=== PATIENT | male | born 1955 | race Hispanic/Latino ===

== ENCOUNTER 2017-10-28 14:03 | Emergency (ER) | payer BC ==
[2017-10-28 14:14] VITALS: BP 154/91; PULSE 93; RESP 18; TEMP 97; O2SAT 99
--- NOTE | 2017-10-28 16:00 | ED PDOC ---
HPI: Dental Pain/Injury Time Seen by Provider: 10/28/17 15:08 Chief Complaint (Nursing): Dental Pain Chief Complaint (Provider): Dental Pain History Per: Patient History/Exam Limitations: no limitations Onset/Duration Of Symptoms: Days (x1 week) Current Symptoms Are (Timing): Still Present Additional Complaint(s): Josh Marquez is a 62 year old male with a past medical history of hypertension and BPH, who presents to the ED complaining of a wound to his right upper gumline x1 week. He notes it initially felt like a canker sore which he thought would resolve on its own. However, he notes that this past Saturday (10/26/17), he began experiencing right sided facial swelling and persistence of the sore. He notes his pain is in the same location where he had a root canal performed 5 years ago. He notes 2 years ago, the cap came off the affected tooth, and he never had it replaced. Denies fever or taking any medication for symptoms. PMD: [facility] Past Medical History Reviewed: Historical Data, Nursing Documentation, Vital Signs Vital Signs: Last Vital Signs Temp 97 F L 10/28/17 14:12 Pulse 93 H 10/28/17 14:12 Resp 18 10/28/17 14:12 BP 154/91 H 10/28/17 14:12 Pulse Ox 99 10/28/17 14:12 - Medical History PMH: Benign Prostatic Hyperplasia, HTN - Surgical History Surgical History: Appendectomy - Family History Family History: States: Unknown Family Hx - Home Medications Home Medications: Ambulatory Orders Medication Instructions Recorded Enalapril Maleate [Enalapril] 10 mg PO DAILY 07/14/15 Enalapril Maleate [Enalapril] 20 mg PO DAILY #30 tab 07/14/15 Naproxen [Naprosyn] 500 mg PO Q12H #20 tab 07/14/15 Acetaminophen [Tylenol 325mg tab] 975 mg PO TID #20 tab 10/28/17 Clindamycin [Cleocin] 300 mg PO TID 7 Days #21 cap 10/28/17 - Allergies Allergies/Adverse Reactions: Allergies Allergy/AdvReac Type Severity Reaction Status Date / Time moxifloxacin [From Avelox] Allergy RASH Verified 10/28/17 14:11 Review of Systems ROS Statement: Except As Marked, All Systems Reviewed And Found Negative Constitutional: Negative for: Fever ENT: Positive for: Mouth Pain (sore right upper gumline), Other (right sided facial swelling) Physical Exam - Reviewed Nursing Documentation Reviewed: Yes Vital Signs Reviewed: Yes - Physical Exam Appears: Positive for: Well, Non-toxic, No Acute Distress Head Exam: Positive for: ATRAUMATIC Skin: Positive for: Normal Color. Negative for: Rash Eye Exam: Positive for: Normal appearance ENT: Positive for: Other (Mild right sided facial swelling, (-)appreciable abscess, (-)induration, (-)fluctuance, (-)overlying erythema, (-)streaking. ). Negative for: Normal ENT Inspection (Shallow ulcer right upper gumline around first premolar with mild surrounding edema and erythema. No fluctuance noted. Cap of 2nd right molar missing.) Neurologic/Psych: Positive for: Alert, Oriented (x3) - ECG O2 Sat by Pulse Oximetry: 99 (RA) Pulse Ox Interpretation: Normal Medical Decision Making Medical Decision Making: Time: 15:53 Initial Impression: Canker sore, dental infection, facial swelling Plan: --Cleocin 300 mg PO --Tylenol 650 mg PO --Reevaluation Time: 16:03 --Upon provider evaluation patient is medically stable, and requires no further treatment in the ED at this time. Patient will be discharged home with Rx for Cleocin and Tylenol. Counseling was provided and all questions were answered regarding diagnosis and need for follow up with Dentist. There is agreement to discharge plan. Return if symptoms persist or worsen. Scribe Attestation: Documented by Pito Ann, acting as a scribe for Pamela Green PA-C Provider Scribe Attestation: All medical record entries made by the Scribe were at my direction and personally dictated by me. I have reviewed the chart and agree that the record accurately reflects my personal performance of the history, physical exam, medical decision making, and the department course for this patient. I have also personally directed, reviewed, and agree with the discharge instructions and disposition. Disposition - Clinical Impression Clinical Impression: Canker sores oral, Dental infection, Facial swelling - Patient ED Disposition Is Patient to be Admitted: No Counseled Patient/Family Regarding: Diagnosis, Need For Followup, Rx Given - Disposition Referrals: [facility] [Outside] Disposition: Routine/Home Disposition Time: 16:03 Condition: STABLE Additional Instructions: Salt water gargles, take medication as prescribed, and f/u with dentist. Return for any worsening or change in symptoms. Prescriptions: Acetaminophen [Tylenol 325mg tab] 975 mg PO TID #20 tab Clindamycin [Cleocin] 300 mg PO TID 7 Days #21 cap Instructions: Canker Sores (ED), Gingivostomatitis (ED) Forms: [facility] (Czech) Print Language: CAMBODIAN
== END 2017-10-28 16:40 | disposition home or self-care (01) ==
LOC: H.ER 14:03
DX: K12.0 Recurrent oral aphthae (principal); I10 Essential (primary) hypertension; K04.7 Periapical abscess without sinus; N40.0 Benign prostatic hyperplasia without lower urinary tract symptoms

== ENCOUNTER 2018-06-30 06:14 | Emergency (ER) | payer BC, MEDICAID ==
[2018-06-30 06:38] VITALS: RESP 16
--- NOTE | 2018-06-30 08:00 | ED PDOC ---
HPI: Back Time Seen by Provider: 06/30/18 07:07 Chief Complaint (Nursing): Back Pain Chief Complaint (Provider): Back Pain History Per: Patient History/Exam Limitations: no limitations Onset/Duration Of Symptoms: Days (x3) Current Symptoms Are (Timing): Still Present Additional Complaint(s): Josh Marquez is a 63 year old male, with a past medical history HTN, BPH and COPD, who presents to the emergency department complaining of a back pain, hip pain and right thigh pain s/p fall onset for x3 days. Patient reports he rolled out of bed and hit the end table. Patient states hip pain is exacerbated when he stands up. He took x2 Aleve for the pain and is also requesting Rx for Enalapril because he is about to run out. He denies any hematuria, head or injuries to other extremities. No further medical complaints. PMD: None Past Medical History Reviewed: Historical Data, Nursing Documentation, Vital Signs Vital Signs: Last Vital Signs Temp 97.7 F 06/30/18 06:34 Pulse 63 06/30/18 06:34 Resp 16 06/30/18 06:34 BP 175/99 H 06/30/18 06:34 Pulse Ox 97 06/30/18 06:34 - Medical History PMH: Benign Prostatic Hyperplasia, COPD, HTN - Surgical History Surgical History: Appendectomy, Hernia Repair - Family History Family History: States: Unknown Family Hx - Social History Alcohol: None Drugs: Denies - Home Medications Home Medications: Ambulatory Orders Medication Instructions Recorded Enalapril Maleate [Enalapril] 10 mg PO DAILY 07/14/15 Enalapril Maleate [Enalapril] 20 mg PO DAILY #30 tab 07/14/15 Acetaminophen [Tylenol 325mg tab] 975 mg PO TID #20 tab 10/28/17 Clindamycin [Cleocin] 300 mg PO TID 7 Days #21 cap 10/28/17 Enalapril Maleate [Vasotec] 20 mg PO DAILY #30 tab 06/30/18 Naproxen [Naprosyn] 500 mg PO Q12H #20 tab 06/30/18 - Allergies Allergies/Adverse Reactions: Allergies Allergy/AdvReac Type Severity Reaction Status Date / Time moxifloxacin [From Avelox] Allergy RASH Verified 10/28/17 14:11 Review of Systems ROS Statement: Except As Marked, All Systems Reviewed And Found Negative Constitutional: Negative for: Other (head injuries) Genitourinary Male: Negative for: Hematuria Musculoskeletal: Positive for: Back Pain, Leg Pain (right thigh), Other (hip pain) Physical Exam - Reviewed Nursing Documentation Reviewed: Yes Vital Signs Reviewed: Yes - Physical Exam Appears: Positive for: No Acute Distress Head Exam: Positive for: ATRAUMATIC, NORMAL INSPECTION, NORMOCEPHALIC Skin: Positive for: Normal Color, Warm, Dry Eye Exam: Positive for: Normal appearance, EOMI, PERRL Neck: Positive for: Painless ROM Cardiovascular/Chest: Positive for: Regular Rate, Rhythm. Negative for: Murmur Respiratory: Positive for: Normal Breath Sounds. Negative for: Respiratory Distress Gastrointestinal/Abdominal: Positive for: Normal Exam, Soft. Negative for: Tenderness Back: Positive for: Other (Ecchymosis to right lower back w/ some tenderness to area. ). Negative for: Vertebral Tenderness (No midline spine tenderness) Extremity: Positive for: Normal ROM (upper and lower extremities). Negative for : Tenderness (hip and extremities), Deformity, Swelling Neurologic/Psych: Positive for: Alert, Oriented. Negative for: Motor/Sensory Deficits - ECG O2 Sat by Pulse Oximetry: 97 (RA) Pulse Ox Interpretation: Normal - Progress Re-evaluation Time: 11:00 Condition: Re-examined, Improved Medical Decision Making Medical Decision Making: Time: 07:07 Initial Impression: back pain and hip pain s/p trauma/fall. Hip differential includes r/o hi fracture and pelvis fracture. Lower back differential includes r /p intraabdominal injury such as bleeding Initial Plan: --Abdomen & Pelvis w/o PO or IV cont [CT] --Urine dipstick --Flexeril 10 mg PO --Toradol 30 mg IM --Hip 1 view w/ Pelvis RT [RAD] --Reevaluation 09:00 Hip x-ray FINDINGS: BONES: Bone alignment and mineralization are normal. There is no acute displaced fracture or bone destruction. JOINTS: Mild degenerative osteoarthrosis in the hip joints and sacroiliac joints. SOFT TISSUES: Normal. OTHER FINDINGS: None. IMPRESSION: No acute fracture or dislocation. 09:35 Abdomen/Pelvis CT FINDINGS: LOWER THORAX: There is subsegmental atelectasis in the right lung base. The visualized left lung is clear. LIVER: Normal in size. No intrahepatic ductal dilatation. GALLBLADDER AND BILE DUCTS: There are multiple gallstones. No biliary dilatation PANCREAS: Normal in size. No ductal dilatation. SPLEEN: Normal in size. ADRENALS: Normal in size. No discrete nodule. KIDNEYS AND URETERS: The right kidney is normal in size and there is mild right hydronephrosis. No nephrolithiasis. There is mild enlargement of the left kidney. There is a 7 mm nonobstructing stone in the lower pole of the left kidney. There is moderate left hydronephrosis, and moderate diffuse dilatation of the left ureter without evidence for obstructing stone. VASCULATURE: No aortic aneurysm. BOWEL: The small bowel loops are normal in caliber. The colon is normal in size. There is moderate amount of stool in the colon. There is scattered left colonic diverticulosis without CT evidence for acute diverticulitis. No bowel dilatation or wall thickening. No bowel obstruction. APPENDIX: Not visualized. No inflammatory changes in the right lower quadrant. PERITONEUM: No free fluid. No free air. LYMPH NODES: No enlarged lymph nodes. BLADDER: Well distended. REPRODUCTIVE: Mild enlargement of the prostate gland. BONES: No acute fracture. Mild levoscoliosis in the lumbar spine with multilevel degenerative changes. OTHER FINDINGS: There is partial herniation of right lateral bladder into right inguinal hernia. IMPRESSION: No acute findings. 7 mm nonobstructing stone in the lower pole of the left kidney. Moderate left hydronephrosis and moderate diffuse dilatation of the left ureteral without evidence for obstructing stone. Moderate right hip inguinal hernia containing partially herniated right lateral urinary bladder. ----- Scribe Attestation: Documented by Sid Calderon, acting as a scribe for Og Marcelino MD. Provider Scribe Attestation: All medical record entries made by the Scribe were at my direction and personally dictated by me. I have reviewed the chart and agree that the record accurately reflects my personal performance of the history, physical exam, medical decision making, and the department course for this patient. I have also personally directed, reviewed, and agree with the discharge instructions and disposition. Disposition - Clinical Impression Clinical Impression: Back pain, Renal stones, Inguinal hernia - Patient ED Disposition Is Patient to be Admitted: No Counseled Patient/Family Regarding: Studies Performed, Diagnosis, Need For Followup - Disposition Referrals: [facility] [Outside] Disposition Time: 11:00 Condition: GOOD Additional Instructions: Take your medications as instructed. Follow up with your PCP in 2-3 days. Prescriptions: Enalapril Maleate [Vasotec] 20 mg PO DAILY #30 tab Naproxen [Naprosyn] 500 mg PO Q12H #20 tab Instructions: Kidney Stones in Adults, Low Back Pain (DC), Groin Hernia (DC)
--- NOTE | 2018-06-30 09:01 | RAD ---
PROCEDURE: Right Hip Radiographs. HISTORY: right hip pain COMPARISON: None. FINDINGS: BONES: Bone alignment and mineralization are normal. There is no acute displaced fracture or bone destruction. JOINTS: Mild degenerative osteoarthrosis in the hip joints and sacroiliac joints. SOFT TISSUES: Normal. OTHER FINDINGS: None. IMPRESSION: No acute fracture or dislocation.
--- NOTE | 2018-06-30 09:36 | CT ---
Date of service: 06/30/2018 PROCEDURE: CT Abdomen and Pelvis without intravenous contrast HISTORY: right flank lower back pain s/p fall COMPARISON: None. TECHNIQUE: CT scan of the abdomen and pelvis was performed without administration of intravenous contrast. Oral contrast was not administered. Coronal and sagittal reformatted images were obtained. . Radiation dose: Total exam DLP = 570.27 mGy-cm. This CT exam was performed using one or more of the following dose reduction techniques: Automated exposure control, adjustment of the mA and/or kV according to patient size, and/or use of iterative reconstruction technique. FINDINGS: LOWER THORAX: There is subsegmental atelectasis in the right lung base. The visualized left lung is clear. LIVER: Normal in size. No intrahepatic ductal dilatation. GALLBLADDER AND BILE DUCTS: There are multiple gallstones. No biliary dilatation PANCREAS: Normal in size. No ductal dilatation. SPLEEN: Normal in size. ADRENALS: Normal in size. No discrete nodule. KIDNEYS AND URETERS: The right kidney is normal in size and there is mild right hydronephrosis. No nephrolithiasis. There is mild enlargement of the left kidney. There is a 7 mm nonobstructing stone in the lower pole of the left kidney. There is moderate left hydronephrosis, and moderate diffuse dilatation of the left ureter without evidence for obstructing stone. VASCULATURE: No aortic aneurysm. BOWEL: The small bowel loops are normal in caliber. The colon is normal in size. There is moderate amount of stool in the colon. There is scattered left colonic diverticulosis without CT evidence for acute diverticulitis. No bowel dilatation or wall thickening. No bowel obstruction. APPENDIX: Not visualized. No inflammatory changes in the right lower quadrant. PERITONEUM: No free fluid. No free air. LYMPH NODES: No enlarged lymph nodes. BLADDER: Well distended. REPRODUCTIVE: Mild enlargement of the prostate gland. BONES: No acute fracture. Mild levoscoliosis in the lumbar spine with multilevel degenerative changes. OTHER FINDINGS: There is partial herniation of right lateral bladder into right inguinal hernia. IMPRESSION: No acute findings. 7 mm nonobstructing stone in the lower pole of the left kidney. Moderate left hydronephrosis and moderate diffuse dilatation of the left ureteral without evidence for obstructing stone. Moderate right hip inguinal hernia containing partially herniated right lateral urinary bladder.
[2018-06-30 13:14] VITALS: BP 118/70; PULSE 74; TEMP 98
[2018-07-01 16:04] VITALS: O2SAT 97
== END 2018-06-30 13:59 | disposition home or self-care (01) ==
LOC: H.ER 06:14
DX: K40.90 Unilateral inguinal hernia, without obstruction or gangrene, not specified as recurrent (principal); N20.0 Calculus of kidney; M54.9 Dorsalgia, unspecified; M25.551 Pain in right hip; W06.XXXA Fall from bed, initial encounter; Y92.003 Bedroom of unspecified non-institutional (private) residence as the place of occurrence of the external cause; I10 Essential (primary) hypertension; J44.9 Chronic obstructive pulmonary disease, unspecified; N40.0 Benign prostatic hyperplasia without lower urinary tract symptoms
CPT/HCPCS: 73501; 74176; 96372; 99283; J1885

== ENCOUNTER 2018-08-29 22:09 | Emergency (ER) | payer MEDICAID, OTHER ==
[2018-08-29 22:35] VITALS: RESP 18
[2018-08-30 01:33] LABS: BASO # 0.1 K/uL (0.0-0.2); BASO % 0.6 % (0.0-2.0); EOS % 0.3 % (0.0-4.0); HEMOGLOBIN 15.6 g/dL (12.0-18.0); LYMPH # 1.3 K/uL (1.0-4.3); LYMPH % 9.6 % (20.0-40.0); MEAN CELL VOLUME 90.1 fl (80.0-94.0); MEAN CORPUSCULAR HEMOGLOBIN 29.9 pg (27.0-31.0); MEAN CORPUSCULAR HGB CONC 33.1 g/dL (33.0-37.0); MEAN PLATELET VOLUME 10.9 fl (7.2-11.7); MONO # 1.3 K/uL (0.0-0.8); MONO % 9.9 % (0.0-10.0); NEUT # 10.9 K/uL (1.8-7.0); NEUT % 79.6 % (50.0-75.0); PLATELET COUNT 180 K/uL (130-400); RBC 5.21 Mil/uL (4.40-5.90); RED CELL DISTRIBUTION WIDTH 13.8 % (11.5-14.5); WHITE BLOOD COUNT 13.7 K/uL (4.8-10.8)
[2018-08-30 01:42] LABS: ALB/GLOB RATIO 1.2 (1.0-2.1); ALBUMIN 3.8 g/dL (3.5-5.0); CALCIUM 8.6 mg/dL (8.4-10.2)
--- NOTE | 2018-08-30 03:17 | ED PDOC ---
HPI: Back Time Seen by Provider: 08/29/18 23:17 Chief Complaint (Nursing): Abdominal Pain Chief Complaint (Provider): Abdominal Pain History Per: Patient History/Exam Limitations: no limitations Onset/Duration Of Symptoms: Days (yesterday) Current Symptoms Are (Timing): Better Quality Of Discomfort: "Pain" Severity: Severe Additional Complaint(s): 63 year old male with a history of bronchitis and htn presents to the ED with lower left back pain onset yesterday. Patient reports pain was so severe today that he had to stop driving while on the road. He reported one episode of vomiting this morning. Patient further complain about constipation with no bowel movements for 4 days. His abdomen is distended but he has no fever. PMD: none Past Medical History Reviewed: Historical Data, Nursing Documentation, Vital Signs Vital Signs: Last Vital Signs Temp 98.3 F 08/29/18 22:32 Pulse 79 08/29/18 22:32 Resp 18 08/29/18 22:32 BP 186/117 H 08/29/18 22:32 Pulse Ox 99 08/29/18 22:32 - Medical History PMH: Benign Prostatic Hyperplasia, Bronchitis, COPD, HTN - Surgical History Surgical History: Appendectomy, Hernia Repair - Family History Family History: States: Unknown Family Hx - Home Medications Home Medications: Ambulatory Orders Medication Instructions Recorded Enalapril Maleate [Enalapril] 10 mg PO DAILY 07/14/15 Enalapril Maleate [Enalapril] 20 mg PO DAILY #30 tab 07/14/15 Acetaminophen [Tylenol 325mg tab] 975 mg PO TID #20 tab 10/28/17 RX: Clindamycin [Cleocin] 300 mg PO TID 7 Days #21 cap 10/28/17 Naproxen [Naprosyn] 500 mg PO Q12H #20 tab 06/30/18 RX: Enalapril Maleate [Vasotec] 20 mg PO DAILY #30 tab 06/30/18 Sulfamethoxazole/Trimethoprim 1 tab PO BID #14 tab 08/30/18 [Bactrim DS 800 mg-160 mg] Tamsulosin [Flomax] 0.4 mg PO DAILY #10 cap 08/30/18 - Allergies Allergies/Adverse Reactions: Allergies Allergy/AdvReac Type Severity Reaction Status Date / Time moxifloxacin [From Avelox] Allergy RASH Verified 08/29/18 22:32 Review of Systems ROS Statement: Except As Marked, All Systems Reviewed And Found Negative Gastrointestinal: Positive for: Vomiting, Constipation Musculoskeletal: Positive for: Back Pain (lower left) Physical Exam - Reviewed Nursing Documentation Reviewed: Yes Vital Signs Reviewed: Yes - Physical Exam Appears: Positive for: Non-toxic, No Acute Distress (comfortable) Head Exam: Positive for: ATRAUMATIC, NORMOCEPHALIC Skin: Positive for: Normal Color, Warm, Dry Eye Exam: Positive for: Normal appearance Neck: Positive for: Normal Cardiovascular/Chest: Positive for: Regular Rate, Rhythm. Negative for: Murmur Respiratory: Positive for: Normal Breath Sounds. Negative for: Respiratory Distress Gastrointestinal/Abdominal: Positive for: Normal Exam, Soft. Negative for: Tenderness Back: Positive for: Other (no severe tenderness) Extremity: Positive for: Normal ROM. Negative for: Pedal Edema, Deformity Neurologic/Psych: Positive for: Alert, Oriented (x3) - Laboratory Results Result Diagrams: 08/30/18 01:30 08/30/18 01:30 - ECG O2 Sat by Pulse Oximetry: 99 (RA) Pulse Ox Interpretation: Normal - Progress Re-evaluation Time: 04:00 Condition: Re-examined, Improved Medical Decision Making Medical Decision Making: Time: 010 Initial Impression: Lower back pain and abdomen distention with vomiting and constipation Differential diagnoses include but are not limited to: SBO, kidney stones, musculoskeletal pain Initial Plan: --CT abd and pelvis --CMP --Lipase --Dipstick --CBC with differentials --Toradol 30 mg IVP --Flomax 0.4 mg PO Time: 154 CT abd and pelvis Impression: --Obstructing stone in proximal left ureter --Cystitis, possibly chronic --Peristalsis without acute cholecystitis Scribe Attestation: Documented by Angeline Melo, acting as a scribe for Og Marcelino MD Provider Scribe Attestation: All medical record entries made by the Teressaibjanee were at my direction and personally dictated by me. I have reviewed the chart and agree that the record accurately reflects my personal performance of the history, physical exam, medical decision making, and the department course for this patient. I have also personally directed, reviewed, and agree with the discharge instructions and disposition. Disposition - Clinical Impression Clinical Impression: Ureteral stone, Hypertension - Patient ED Disposition Is Patient to be Admitted: No Doctor Will See Patient In The: Office Counseled Patient/Family Regarding: Studies Performed, Diagnosis - Disposition Referrals: Barbara Escobar MD [Medical Doctor] - Disposition: Routine/Home Disposition Time: 04:00 Condition: GOOD Additional Instructions: HUSSEIN HANSON, thank you for letting us take care of you today. Your provider was Og Marcelino MD and you were treated for ABD PAIN, RIB PAIN, VOMITING. The emergency medical care you received today was directed at your acute symptoms. If you were prescribed any medication, please fill it and take as directed. It may take several days for your symptoms to resolve. Return to the Emergency Department if your symptoms worsen, do not improve, or if you have any other problems. Please contact your doctor or call one of the physicians/clinics you have been referred to that are listed on the Patient Visit Information form that is included in your discharge packet. Bring any paperwork you were given at discharge with you along with any medications you are taking to your follow up visit. Our treatment cannot replace ongoing medical care by a primary care provider outside of the emergency department. Thank you for allowing the [facility] team to be part of your care today. If you had an X-Ray or CT scan: A Radiologist will review the ED reading if any change in treatment is needed we will contact you. If you had a blood, urine, or wound culture: It will take several days for the results, if any change in treatment is needed we will contact you. If you had an STI test: It will take 48 hours for the results. Please call after 1 week if you have not heard back. Prescriptions: Sulfamethoxazole/Trimethoprim [Bactrim DS 800 mg-160 mg] 1 tab PO BID #14 tab Tamsulosin [Flomax] 0.4 mg PO DAILY #10 cap Instructions: Kidney Stones in Adults, High Blood Pressure in Adults
[2018-08-30 03:38] LABS: ANISOCYTOSIS SLIGHT; BANDS 3 % (0-2); LARGE PLATELETS PRESENT; LYMPHOCYTE 8 % (20-50); MONOCYTE 2 % (0-10); NEUTROPHIL 86 % (42-75); PLATELET CLUMPS PRESENT; PLATELET ESTIMATE NORMAL (NORMAL); REACTIVE LYMPHOCYTES 1 % (0-0); TOTAL CELLS COUNTED 100
[2018-08-30 03:40] LABS: ACANTHOCYTES SLIGHT; HYPOCHROMIC SLIGHT
[2018-08-30 05:51] VITALS: BP 136/70; PULSE 58; TEMP 98.5
--- NOTE | 2018-08-30 20:40 | CT ---
Date of service: 08/30/2018 PROCEDURE: CT Abdomen and Pelvis without intravenous contrast HISTORY: constipation abd pain vomiting COMPARISON: Comparison is made with 06/30/2018 TECHNIQUE: Axial and reformatted coronal and sagittal CT images of the abdomen and pelvis were obtained without IV or oral contrast administration.. Contrast dose: 0 Radiation dose: Total exam DLP = 561.71 mGy-cm. This CT exam was performed using one or more of the following dose reduction techniques: Automated exposure control, adjustment of the mA and/or kV according to patient size, and/or use of iterative reconstruction technique. FINDINGS: LOWER THORAX: Small linear opacities at the lung bases likely atelectasis or scar tissue. Small hiatus hernia. LIVER: Unremarkable. No gross lesion or ductal dilatation. GALLBLADDER AND BILE DUCTS: Gallstones are again noted without evidence of acute cholecystitis. PANCREAS: Unremarkable. No gross lesion or ductal dilatation. SPLEEN: Unremarkable. ADRENALS: Unremarkable. No mass. KIDNEYS AND URETERS: Interval appearance of moderate left hydronephrosis and proximal hydroureter up to 5.5 millimeter calculus at the proximal left ureter. Mild to moderate left perinephric stranding. The right kidney is unremarkable. VASCULATURE: Unremarkable. No aortic aneurysm. BOWEL: Colonic diverticulosis are noted without evidence of diverticulitis. No evidence of high-grade bowel obstruction. APPENDIX: No evidence of appendicitis. PERITONEUM: Unremarkable. No free fluid. No free air. LYMPH NODES: Unremarkable. No enlarged lymph nodes. BLADDER: Diffuse urinary bladder wall thickening. Again noted is herniation of the bladder into right inguinal hernia. REPRODUCTIVE: The prostate and seminal vesicles are moderately enlarged P BONES: No acute fracture. OTHER FINDINGS: Large bilateral inguinal hernias seen contains on the right part of the bladder and contains in the left mesenteric fat. IMPRESSION: Moderate left hydronephrosis up to 5.5 millimeter calculus at the proximal left ureter. Diffuse urinary bladder wall thickening suspicious for cystitis. The bladder is herniated through right inguinal hernia. Large bilateral inguinal hernias. Moderately enlarged prostate. Preliminary report was submitted by [facility]
[2018-09-01 19:09] VITALS: O2SAT 99
== END 2018-08-30 07:09 | disposition home or self-care (01) ==
LOC: H.ER 22:09
DX: N20.1 Calculus of ureter (principal); I10 Essential (primary) hypertension; K59.00 Constipation, unspecified
CPT/HCPCS: 74176; 80053; 83690; 85025; 96374; 99284; J1885

== ENCOUNTER 2018-09-07 15:43 | Observation (INO) | payer OTHER ==
[2018-09-07 17:13] LABS: BASO # 0.1 K/uL (0.0-0.2); BASO % 0.8 % (0.0-2.0); EOS % 0.4 % (0.0-4.0); HEMOGLOBIN 14.7 g/dL (12.0-18.0); LYMPH # 0.9 K/uL (1.0-4.3); LYMPH % 8.1 % (20.0-40.0); MEAN CORPUSCULAR HEMOGLOBIN 29.9 pg (27.0-31.0); MEAN CORPUSCULAR HGB CONC 33.2 g/dL (33.0-37.0); MONO # 1.4 K/uL (0.0-0.8); MONO % 12.5 % (0.0-10.0); NEUT # 8.6 K/uL (1.8-7.0); NEUT % 78.2 % (50.0-75.0); NRBC % 0.1 % (0.0-0.0); PLATELET COUNT 207 K/uL (130-400); RBC 4.91 Mil/uL (4.40-5.90); RED CELL DISTRIBUTION WIDTH 13.5 % (11.5-14.5)
--- NOTE | 2018-09-07 17:19 | ED PDOC ---
HPI: Back Time Seen by Provider: 09/07/18 16:24 Chief Complaint (Nursing): Male Genitourinary Chief Complaint (Provider): Flank Pain History Per: Patient History/Exam Limitations: no limitations Onset/Duration Of Symptoms: Days (x7) Current Symptoms Are (Timing): Still Present Additional Complaint(s): 63 y/o male with a PMHx of BPH, Bronchitis, COPD and HTN presents to the ED for evaluation of left sided flank pain, ongoing for about a week. Patient states pain is associated with intermittent, non-bloody, non-bilious vomiting and retching as well as dysuria and frequency. Patient was diagnosed one week ago with left sided kidney stone and discharged home. Patient reports he did not start prescribed medications until a few days after being discharged. Patient st ates he has felt the same since his discharge. Patient is taking Motrin intermittently with some relief of pain. Patient admits he is not complaint with HTN medications due to insurance issues. In addition, patient is complaining of constipation and states he has been taking Fleet with no relief. PMD: [facility] Past Medical History Reviewed: Historical Data, Nursing Documentation, Vital Signs Vital Signs: Last Vital Signs Temp 98.7 F 09/07/18 15:53 Pulse 78 09/07/18 15:53 Resp 18 09/07/18 15:53 BP 176/105 H 09/07/18 17:03 Pulse Ox 99 09/07/18 15:53 - Medical History PMH: Benign Prostatic Hyperplasia, Bronchitis, COPD, HTN - Surgical History Surgical History: Appendectomy, Hernia Repair - Family History Family History: States: Unknown Family Hx - Home Medications Home Medications: Ambulatory Orders Medication Instructions Recorded Enalapril Maleate [Vasotec] 20 mg PO DAILY #30 tab 06/30/18 Naproxen [Naprosyn] 500 mg PO Q12H #20 tab 06/30/18 - Allergies Allergies/Adverse Reactions: Allergies Allergy/AdvReac Type Severity Reaction Status Date / Time moxifloxacin [From Avelox] Allergy RASH Verified 09/07/18 21:38 Review of Systems ROS Statement: Except As Marked, All Systems Reviewed And Found Negative (as per HPI) Gastrointestinal: Positive for: Vomiting (intermittent vomiting and retching), Constipation Genitourinary Male: Positive for: Dysuria, Frequency Musculoskeletal: Positive for: Back Pain (left flank pain) Physical Exam - Reviewed Nursing Documentation Reviewed: Yes Vital Signs Reviewed: Yes - Physical Exam Appears: Positive for: In Acute Distress (mild, painful distress. Tired appearing) Head Exam: Positive for: ATRAUMATIC, NORMOCEPHALIC Skin: Positive for: Pallor Eye Exam: Positive for: EOMI, PERRL ENT: Positive for: Pharynx Is (clear), Other (Tachy Mucous Membranes) Neck: Positive for: Painless ROM, Supple Cardiovascular/Chest: Positive for: Regular Rate, Rhythm. Negative for: Murmur Respiratory: Positive for: Normal Breath Sounds. Negative for: Respiratory Distress Gastrointestinal/Abdominal: Positive for: Soft, Tenderness (Mild tenderness to palpation to the LUQ and LLQ). Negative for: Mass, Distended, Guarding, Rebound Back: Positive for: L CVA Tenderness (Mild) Extremity: Positive for: Normal ROM. Negative for: Deformity Lymphatic: Negative for: Adenopathy Neurologic/Psych: Positive for: Alert. Negative for: Motor/Sensory Deficits - Laboratory Results Result Diagrams: 09/07/18 17:10 09/07/18 17:10 - ECG O2 Sat by Pulse Oximetry: 99 (RA) Pulse Ox Interpretation: Normal Medical Decision Making Medical Decision Making: Time: 1643 Impression: Left sided renal colic and constipation Differentials include but not limited to pyelonephritis, obstructing renal calculus, sepsis and dehydration. Plan: -- CT Abd/Pelvis w/o PO or IV Contrast -- CMP -- Lact Acid, Plasma -- CBC with Differentials -- Flomax 0.5 mg PO -- Toradol 30 mg IV -- Blood Culture -- Urine Culture -- IV Insertion -- Urinalysis Time: 175 CT abd/pelvis with contrast: FINDINGS: LOWER THORAX: Heart size is within range of normal. No significant pericardial effusion. There is a tiny hiatal hernia. Minor atelectasis/scarring changes both lung bases. No effusion or basilar pneumothorax. LIVER: Unremarkable. No gross lesion or ductal dilatation. GALLBLADDER AND BILE DUCTS: Cholelithiasis. PANCREAS: Pancreas appears slightly atrophic and fatty replaced. SPLEEN: Unremarkable. ADRENALS: Mildly enlarged left adrenal gland KIDNEYS AND URETERS: There is a obstructing calculus within the proximal-mid left ureter that measures approximately 6 mm with significant left-sided hydronephrosis with infiltration changes in the perinephric fat and fat surrounding the proximal left ureter. In addition, there also appears to be some induration of the wall of the ureter. No evidence of right-sided nephrolithiasis. Minimal infiltration seen in the right perinephric fat. Induration about the proximal right ureter. Infiltration changes are VASCULATURE: Minor aortic atherosclerotic calcifications/mural plaque BOWEL: Evaluation of the bowel is somewhat limited due to the lack of oral contrast material. Stomach is incompletely distended which in part accounts for thick- walled appearance. Rule out gastritis. Visualized loops of small bowel exhibit normal contour and caliber. No evidence of acute mechanical small bowel obstruction.. Note made of slight the discontinuous wall thickening of the descending colon which could be in part due to incomplete distention peristalsis and adherent stool however the possibility of the wall thickening due to chronic inflammation not excluded. Clinical correlation recommended. APPENDIX: Appendix not seen with any certainty on this exam however no obvious inflammatory changes right lower quadrant of the abdomen PERITONEUM: As mentioned above, bilateral fat containing inguinal hernias right-side larger than left. The right inguinal hernia also contains a large right-sided bladder diverticulum. LYMPH NODES: Unremarkable. No enlarged lymph nodes. BLADDER: Urinary bladder is incompletely distended which in part accounts for thick- walled appearance. Muscular hypertrophy could presumably contributes however correlation with urinalysis recommended to exclude cystitis/UTI.. There is a large right-sided inguinal hernia that also contains a relatively large right- sided bladder diverticulum and mesenteric fat. The REPRODUCTIVE: The prostate gland measures approximately 4.9 cm in transverse dimension. Findings likely due to BPH however correlation with PSA recommended. BONES: There are a few sclerotic foci seen within the pelvis and left hip likely representing bone islands or osteomas. Minor multilevel degenerative spondylosis of the lower thoracic and lumbar spine. There straightening of the normal lumbar lordosis with minimal levoscoliosis on lower lumbar region. OTHER FINDINGS: None. IMPRESSION: There is a 6 mm obstructing calculus proximal/mid left ureter with moderate to significant left-sided hydronephrosis on. Infiltration changes in the perinephric fat. Superimposed UTI not excluded. There is wall thickening of the urinary bladder with a large of right-sided bladder diverticulum extending into an inguinal hernia. Rule out cystitis/UTI with the urinalysis correlation. The the the Mildly enlarged left adrenal gland. Cholelithiasis Pt to be hospitalized for persistent obstructive renal calculus DW Dr Zamora Hospitalist PRACHI Huang. Recommends NPO after midnight for stent tomorrow morning. Scribe Attestation: Documented by Bruno Duff, acting as a scribe Bertha Aleman MD. Provider Scribe Attestation: All medical record entries made by the Scribe were at my direction and personally dictated by me. I have reviewed the chart and agree that the record accurately reflects my personal performance of the history, physical exam, medical decision making, and the department course for this patient. I have also personally directed, reviewed, and agree with the discharge instructions and disposition. Disposition - Clinical Impression Clinical Impression: Hydronephrosis with renal calculous obstruction - Disposition Disposition Time: 19:00 Condition: FAIR - Pt Status Changed To: Hospital Disposition Of: Inpatient - Admit Certification Admit to Inpatient:: After my assessment, the patient will require hospitalization for at least two midnights. This is because of the severity of symptoms shown, intensity of services needed, and/or the medical risk in this patient being treated as an outpatient. - POA Present On Arrival: None
[2018-09-07 17:24] LABS: ALBUMIN 3.8 g/dL (3.5-5.0); CALCIUM 8.8 mg/dL (8.4-10.2)
[2018-09-07 17:25] LABS: ALB/GLOB RATIO 1.1 (1.0-2.1)
--- NOTE | 2018-09-07 18:00 | CT ---
Date of service: 09/07/2018 PROCEDURE: CT Abdomen and Pelvis without intravenous contrast HISTORY: LEFT renal calculus possible pyelonephritis COMPARISON: None. TECHNIQUE: CT scan abdomen pelvis performed in standard fashion without contrast. Additional 2D sagittal and coronal reformats generated. The Radiation dose: Total exam DLP = 615.51 mGy-cm. This CT exam was performed using one or more of the following dose reduction techniques: Automated exposure control, adjustment of the mA and/or kV according to patient size, and/or use of iterative reconstruction technique. FINDINGS: LOWER THORAX: Heart size is within range of normal. No significant pericardial effusion. There is a tiny hiatal hernia. Minor atelectasis/scarring changes both lung bases. No effusion or basilar pneumothorax. LIVER: Unremarkable. No gross lesion or ductal dilatation. GALLBLADDER AND BILE DUCTS: Cholelithiasis. PANCREAS: Pancreas appears slightly atrophic and fatty replaced. SPLEEN: Unremarkable. ADRENALS: Mildly enlarged left adrenal gland KIDNEYS AND URETERS: There is a obstructing calculus within the proximal-mid left ureter that measures approximately 6 mm with significant left-sided hydronephrosis with infiltration changes in the perinephric fat and fat surrounding the proximal left ureter. In addition, there also appears to be some induration of the wall of the ureter. No evidence of right-sided nephrolithiasis. Minimal infiltration seen in the right perinephric fat. Induration about the proximal right ureter. Infiltration changes are VASCULATURE: Minor aortic atherosclerotic calcifications/mural plaque BOWEL: Evaluation of the bowel is somewhat limited due to the lack of oral contrast material. Stomach is incompletely distended which in part accounts for thick-walled appearance. Rule out gastritis. Visualized loops of small bowel exhibit normal contour and caliber. No evidence of acute mechanical small bowel obstruction.. Note made of slight the discontinuous wall thickening of the descending colon which could be in part due to incomplete distention peristalsis and adherent stool however the possibility of the wall thickening due to chronic inflammation not excluded. Clinical correlation recommended. APPENDIX: Appendix not seen with any certainty on this exam however no obvious inflammatory changes right lower quadrant of the abdomen PERITONEUM: As mentioned above, bilateral fat containing inguinal hernias right-side larger than left. The right inguinal hernia also contains a large right-sided bladder diverticulum. LYMPH NODES: Unremarkable. No enlarged lymph nodes. BLADDER: Urinary bladder is incompletely distended which in part accounts for thick-walled appearance. Muscular hypertrophy could presumably contributes however correlation with urinalysis recommended to exclude cystitis/UTI.. There is a large right-sided inguinal hernia that also contains a relatively large right-sided bladder diverticulum and mesenteric fat. The REPRODUCTIVE: The prostate gland measures approximately 4.9 cm in transverse dimension. Findings likely due to BPH however correlation with PSA recommended. BONES: There are a few sclerotic foci seen within the pelvis and left hip likely representing bone islands or osteomas. Minor multilevel degenerative spondylosis of the lower thoracic and lumbar spine. There straightening of the normal lumbar lordosis with minimal levoscoliosis on lower lumbar region. OTHER FINDINGS: None. IMPRESSION: There is a 6 mm obstructing calculus proximal/mid left ureter with moderate to significant left-sided hydronephrosis on. Infiltration changes in the perinephric fat. Superimposed UTI not excluded. There is wall thickening of the urinary bladder with a large of right-sided bladder diverticulum extending into an inguinal hernia. Rule out cystitis/UTI with the urinalysis correlation. The the the Mildly enlarged left adrenal gland. Cholelithiasis
[2018-09-07 19:32] LABS: BANDS 2 % (0-2); LARGE PLATELETS PRESENT; LYMPHOCYTE 4 % (20-50); MONOCYTE 10 % (0-10); NEUTROPHIL 82 % (42-75); PLATELET ESTIMATE NORMAL (NORMAL); REACTIVE LYMPHOCYTES 2 % (0-0); TOTAL CELLS COUNTED 100
[2018-09-07 20:07] LABS: URINE BACTERIA RARE (<OCC); URINE BILIRUBIN NEGATIVE (NEGATIVE); URINE BLOOD SMALL (NEGATIVE); URINE CLARITY SLIGHTY-CLOUDY (Clear); URINE COLOR YELLOW (YELLOW); URINE GLUCOSE (UA) NEG (Normal); URINE LEUKOCYTE ESTERASE NEG Leu/uL (Negative); URINE PROTEIN NEGATIVE (NEGATIVE); URINE UROBILINOGEN 0.2-1.0 mg/dL (0.2-1.0)
--- NOTE | 2018-09-07 22:33 | CP.PCM.HP ---
<Jenn Summers - Last Filed: 09/08/18 01:55> History of Present Illness - History of Present Illness History of Present Illness: 63 yo male with a medical history of BPH, COPD- emphysema (does not take any medications/inhalers), and hypertension (previously tx with enalapril), presented to the ED due to left sided flank pain radiating to abdomen. Pain is sharp, rated 7/10, and has been present for the past 2 weeks. Pt states that he was here 1 week ago for similar complaint, and that he had imaging that showed kidney stone then; was prescribed bactrim and flomax, which he has been taking for the past few days. Pain is associated with intermittent, non-bloody, non- bilious vomiting and retching as well as dysuria, increased frequency and darkened urine. He has taken ibuprofen for pain, with minimal relief, but states that his pain has improved with toradol given in ED. He also complains of constipation and reports having done fleet enemas with minimal relief. Of note, pt has history of HTN; review of last clinic note has enalapril 20 mg as medication, but pt has not been taking medication. Med hx: BPH, HTN, emphysema Surg hx: appendectomy, hernia repair Social hx: 1 ppd x 20 yrs, denies alcohol use, denies other drug use Meds: enalapril 20 mg daily Allergies: moxifloxacin CT abd exam: IMPRESSION: There is a 6 mm obstructing calculus proximal/mid left ureter with moderate to significant left-sided hydronephrosis on. Infiltration changes in the perinephric fat. Superimposed UTI not excluded. There is wall thickening of the urinary bladder with a large of right-sided bladder diverticulum extending into an inguinal hernia. Rule out cystitis/UTI with the urinalysis correlation. Mildly enlarged left adrenal gland. Cholelithiasis. Present on Admission - Present on Admission Any Indicators Present on Admission: No Review of Systems - Review of Systems All systems: reviewed and no additional remarkable complaints except - Constitutional Constitutional: absent: Chills, Night Sweats - Cardiovascular Cardiovascular: absent: Chest Pain, Dyspnea - Respiratory Respiratory: absent: Cough - Gastrointestinal Gastrointestinal: Abdominal Pain, Constipation, Vomiting - Genitourinary Genitourinary: Difficulty Urinating, Dysuria, Flank Pain, Hx Renal/Bladder Calculi. absent: Hematuria Past Patient History - Past Medical History & Family History Past Medical History?: Yes - Past Social History Smoking Status: Heavy Smoker > 10 Cigarettes Daily Alcohol: None Drugs: Denies - CARDIAC Hx Cardiac Disorders: Yes Hx Hypertension: Yes - PULMONARY Hx Respiratory Disorders: Yes Hx Bronchitis: Yes Hx Chronic Obstructive Pulmonary Disease (COPD): Yes - NEUROLOGICAL Hx Neurological Disorder: No - HEENT Hx HEENT Problems: No - RENAL Hx Kidney Stones: Yes - ENDOCRINE/METABOLIC Hx Endocrine Disorders: No - HEMATOLOGICAL/ONCOLOGICAL Hx Blood Disorders: No - INTEGUMENTARY Hx Dermatological Problems: No - MUSCULOSKELETAL/RHEUMATOLOGICAL Hx Musculoskeletal Disorders: No - GASTROINTESTINAL Hx Gastrointestinal Disorders: No - GENITOURINARY/GYNECOLOGICAL Hx Genitourinary Disorders: Yes Hx Prostate Problems: Yes - SURGICAL HISTORY Hx Surgeries: Yes Hx Appendectomy: Yes Hx Herniorrhaphy: Yes - ANESTHESIA Hx Anesthesia: Yes Meds Allergies/Adverse Reactions: Allergies Allergy/AdvReac Type Severity Reaction Status Date / Time moxifloxacin [From Avelox] Allergy RASH Verified 09/07/18 21:38 Physical Exam - Constitutional Appears: Non-toxic, No Acute Distress - Head Exam Head Exam: NORMAL INSPECTION - Eye Exam Eye Exam: Normal appearance - Respiratory Exam Respiratory Exam: Clear to Auscultation Bilateral, NORMAL BREATHING PATTERN - Cardiovascular Exam Cardiovascular Exam: REGULAR RHYTHM, +S1, +S2 - GI/Abdominal Exam GI & Abdominal Exam: Soft, Tenderness (lateral left abdomen, above level of umbilicus) - Extremities Exam Extremities exam: Positive for: normal inspection. Negative for: calf tenderness, pedal edema - Back Exam Back exam: CVA tenderness (L). absent: CVA tenderness (R) - Neurological Exam Neurological exam: Alert - Psychiatric Exam Psychiatric exam: Normal Affect - Skin Skin Exam: Dry, Warm Results - Vital Signs Recent Vital Signs: Last Vital Signs Temp 98.7 F 09/07/18 15:53 Pulse 72 09/07/18 19:51 Resp 17 09/07/18 19:51 BP 150/92 H 09/07/18 19:51 Pulse Ox 99 09/07/18 19:57 - Labs Result Diagrams: 09/07/18 17:10 09/07/18 17:10 Labs: Laboratory Results - last 24 hr 09/07/18 09/07/18 09/07/18 17:10 17:10 17:10 WBC 11.0 H RBC 4.91 Hgb 14.7 Hct 44.2 MCV 90.0 MCH 29.9 MCHC 33.2 RDW 13.5 Plt Count 207 MPV 11.0 Neut % (Auto) 78.2 H Lymph % (Auto) 8.1 L Crook % (Auto) 12.5 H Eos % (Auto) 0.4 Baso % (Auto) 0.8 Neut # (Auto) 8.6 H Lymph # (Auto) 0.9 L Crook # (Auto) 1.4 H Eos # (Auto) 0.0 Baso # (Auto) 0.1 Neutrophils % (Manual) 82 H Band Neutrophils % 2 Lymphocytes % (Manual) 4 L Reactive Lymphs % 2 H Monocytes % (Manual) 10 Platelet Estimate Normal Large Platelets Present Sodium 137 Potassium 4.2 Chloride 102 Carbon Dioxide 28 Anion Gap 11 BUN 19 Creatinine 1.8 H Est GFR ( Amer) 46 Est GFR (Non-Af Amer) 38 Random Glucose 114 H Lactic Acid 0.6 L Calcium 8.8 Total Bilirubin 0.7 AST 22 ALT 30 Alkaline Phosphatase 73 Total Protein 7.2 Albumin 3.8 Globulin 3.4 Albumin/Globulin Ratio 1.1 Urine Color Urine Clarity Urine pH Ur Specific Vassar Urine Protein Urine Glucose (UA) Urine Ketones Urine Blood Urine Nitrate Urine Bilirubin Urine Urobilinogen Ur Leukocyte Esterase Urine RBC (Auto) Urine Microscopic WBC Urine Bacteria 09/07/18 19:52 WBC RBC Hgb Hct MCV MCH MCHC RDW Plt Count MPV Neut % (Auto) Lymph % (Auto) Crook % (Auto) Eos % (Auto) Baso % (Auto) Neut # (Auto) Lymph # (Auto) Crook # (Auto) Eos # (Auto) Baso # (Auto) Neutrophils % (Manual) Band Neutrophils % Lymphocytes % (Manual) Reactive Lymphs % Monocytes % (Manual) Platelet Estimate Large Platelets Sodium Potassium Chloride Carbon Dioxide Anion Gap BUN Creatinine Est GFR ( Amer) Est GFR (Non-Af Amer) Random Glucose Lactic Acid Calcium Total Bilirubin AST ALT Alkaline Phosphatase Total Protein Albumin Globulin Albumin/Globulin Ratio Urine Color Yellow Urine Clarity Slighty-cloudy Urine pH 6.0 Ur Specific V[place]ar 1.011 Urine Protein Negative Urine Glucose (UA) Neg Urine Ketones Trace Urine Blood Small Urine Nitrate Negative Urine Bilirubin Negative Urine Urobilinogen 0.2-1.0 Ur Leukocyte Esterase Neg Urine RBC (Auto) 1 Urine Microscopic WBC 2 Urine Bacteria Rare Assessment & Plan - Assessment and Plan (Free Text) Assessment: 63 yo M with BPH, emphysema, hypertension, admitted for obstructing left sided nephrolithiasis, 6mm stone seen on CT. Plan: # Obstructive nephrolithiasis - Flomax 0.4 mg daily - IV fluid hydration 200 ml/hr - Urine and blood culture pending - Toradol 15 mg Q6 PRN for pain - Urology consult - Dr. Huang - NPO overnight - F/u BMP in am - Strain urine # Hypertension - Restart enalapril 20 mg - Monitor BP # Constipation - Miralax QHS # COPD, emphysema - Duoneb TID # DVT prophylaxis - lovenox <Koby Zamora - Last Filed: 09/08/18 03:32> Results - Vital Signs Recent Vital Signs: Last Vital Signs Temp 98.2 F 09/08/18 00:42 Pulse 71 09/08/18 00:42 Resp 20 09/08/18 00:42 BP 150/83 09/08/18 00:42 Pulse Ox 99 09/08/18 00:42 - Labs Result Diagrams: 09/07/18 17:10 09/07/18 17:10 Labs: Laboratory Results - last 24 hr 09/07/18 09/07/18 09/07/18 17:10 17:10 17:10 WBC 11.0 H RBC 4.91 Hgb 14.7 Hct 44.2 MCV 90.0 MCH 29.9 MCHC 33.2 RDW 13.5 Plt Count 207 MPV 11.0 Neut % (Auto) 78.2 H Lymph % (Auto) 8.1 L Crook % (Auto) 12.5 H Eos % (Auto) 0.4 Baso % (Auto) 0.8 Neut # (Auto) 8.6 H Lymph # (Auto) 0.9 L Crook # (Auto) 1.4 H Eos # (Auto) 0.0 Baso # (Auto) 0.1 Neutrophils % (Manual) 82 H Band Neutrophils % 2 Lymphocytes % (Manual) 4 L Reactive Lymphs % 2 H Monocytes % (Manual) 10 Platelet Estimate Normal Large Platelets Present Sodium 137 Potassium 4.2 Chloride 102 Carbon Dioxide 28 Anion Gap 11 BUN 19 Creatinine 1.8 H Est GFR ( Amer) 46 Est GFR (Non-Af Amer) 38 Random Glucose 114 H Lactic Acid 0.6 L Calcium 8.8 Total Bilirubin 0.7 AST 22 ALT 30 Alkaline Phosphatase 73 Total Protein 7.2 Albumin 3.8 Globulin 3.4 Albumin/Globulin Ratio 1.1 Urine Color Urine Clarity Urine pH Ur Specific [place] Urine Protein Urine Glucose (UA) Urine Ketones Urine Blood Urine Nitrate Urine Bilirubin Urine Urobilinogen Ur Leukocyte Esterase Urine RBC (Auto) Urine Microscopic WBC Urine Bacteria 09/07/18 19:52 WBC RBC Hgb Hct MCV MCH MCHC RDW Plt Count MPV Neut % (Auto) Lymph % (Auto) Crook % (Auto) Eos % (Auto) Baso % (Auto) Neut # (Auto) Lymph # (Auto) Crook # (Auto) Eos # (Auto) Baso # (Auto) Neutrophils % (Manual) Band Neutrophils % Lymphocytes % (Manual) Reactive Lymphs % Monocytes % (Manual) Platelet Estimate Large Platelets Sodium Potassium Chloride Carbon Dioxide Anion Gap BUN Creatinine Est GFR ( Amer) Est GFR (Non-Af Amer) Random Glucose Lactic Acid Calcium Total Bilirubin AST ALT Alkaline Phosphatase Total Protein Albumin Globulin Albumin/Globulin Ratio Urine Color Yellow Urine Clarity Slighty-cloudy Urine pH 6.0 Ur Specific V[place]ar 1.011 Urine Protein Negative Urine Glucose (UA) Neg Urine Ketones Trace Urine Blood Small Urine Nitrate Negative Urine Bilirubin Negative Urine Urobilinogen 0.2-1.0 Ur Leukocyte Esterase Neg Urine RBC (Auto) 1 Urine Microscopic WBC 2 Urine Bacteria Rare Attending/Attestation - Attestation I have personally seen and examined this patient.: Yes I have fully participated in the care of the patient.: Yes I have reviewed all pertinent clinical information: Yes Notes (Text): 09/08/18 03:22 I Saw, examined and discussed this patient with the Resident. The assessment and plan represent my direct input. This is a 63 years old male with hx of BPH and HTN. He comes to the ED with 3 days of continuous left flank pain. No fever, nausea nor vomits. The CT of Abdomen/Pelvis showed the 6mm obstructing stone in the left Ureter with Hydronephrosis. We will treat as mentioned above with IV fluids, straining the urine, , Pain management. Urinalysis was negative for infection, no elevated white count, no fever. I will not start Antibiotics at this time. Nephrology consulted with patient possibly going to the OR for stenting. Koby Zamora MD
[2018-09-07] MEDS ORDERED: Sodium Chloride 0.9% 1,000 ML IV SCH (22:45)
[2018-09-07] MEDS: POLYETHYLENE GLYCOL 3350 17 GM/Dose PACKET PO SCH (22:57)
[2018-09-08] MEDS ORDERED: Albuterol-Ipratrop 3 mg / 0.5 (3 ml) UD INH PRN (01:46)
[2018-09-08] MEDS: Sodium Chloride 0.9% 1,000 ML IV SCH ×2 (01:50→23:16)
[2018-09-08 08:11] VITALS: RESP 18
[2018-09-08] MEDS ORDERED: Enoxaparin 30 mg Syringe SC SCH (09:00)
[2018-09-08] MEDS ORDERED: Enoxaparin 40 mg Syringe SC SCH (09:00)
--- NOTE | 2018-09-08 09:29 | RAD ---
Date of service: 09/08/2018 PROCEDURE: CHEST RADIOGRAPH, 1 VIEW HISTORY: pre-op COMPARISON: Chest radiographs 08/15/2013. FINDINGS: LUNGS: No interval pulmonary disease appreciated bilaterally. PLEURA: No pneumothorax or pleural fluid seen. CARDIOVASCULAR: Normal. OSSEOUS STRUCTURES: No significant abnormalities. VISUALIZED UPPER ABDOMEN: Normal. OTHER FINDINGS: None. IMPRESSION: No interval acute cardiopulmonary disease appreciated.
--- NOTE | 2018-09-08 10:17 | CP.PCM.PN ---
<Jesus Washington - Last Filed: 09/08/18 10:13> Subjective - Date & Time of Evaluation Date of Evaluation: 09/08/18 Time of Evaluation: 10:14 - Subjective Subjective: 63 yo male patient seen and examined resting comfortably at bedside. States that he is not in any pain today and was able to void without incident. Denies N/V/F/C/SOB/CP. States he has not eaten since 10:30PM last night and that he is awaiting Urology to come and speak with him. Reports no acute events overnight. Objective - Vital Signs/Intake and Output Vital Signs (last 24 hours): Temp Pulse Resp BP Pulse Ox 98.0 F 69 18 151/84 H 99 09/08/18 08:00 09/08/18 08:00 09/08/18 08:00 09/08/18 08:00 09/08/18 08:00 - Medications Medications: Current Medications Albuterol/Ipratropium (Duoneb 3 Mg/0.5 Mg (3 Ml) Ud) 3 ml INH RTID PRN PRN Reason: Shortness of Breath Enalapril Maleate (Vasotec) 20 mg PO DAILY [facility] Last Admin: 09/08/18 09:46 Dose: 20 mg Enoxaparin Sodium (Lovenox) 40 mg SC DAILY [facility]; Protocol Sodium Chloride (Sodium Chloride 0.9%) 1,000 mls @ 200 mls/hr IV .Q5H [facility] Stop: 09/08/18 22:41 Last Admin: 09/08/18 01:50 Dose: 200 mls/hr Morphine Sulfate (Morphine) 2 mg IVP Q4 PRN PRN Reason: Pain, severe (8-10) Morphine Sulfate (Morphine) 1 mg IVP Q4 PRN PRN Reason: Pain, moderate (4-7) Ondansetron HCl (Zofran Inj) 4 mg IVP Q6 PRN PRN Reason: Nausea/Vomiting Polyethylene Glycol (Miralax) 17 gm PO HS [facility] Last Admin: 09/07/18 22:57 Dose: 17 gm Tamsulosin HCl (Flomax) 0.4 mg PO DAILY [facility] Last Admin: 09/08/18 09:46 Dose: 0.4 mg - Labs Labs: 09/07/18 17:10 09/07/18 17:10 - Constitutional Appears: Well, Non-toxic, No Acute Distress - Head Exam Head Exam: ATRAUMATIC, NORMOCEPHALIC - Eye Exam Eye Exam: Normal appearance - ENT Exam ENT Exam: Mucous Membranes Moist - Respiratory Exam Respiratory Exam: Clear to Ausculation Bilateral, NORMAL BREATHING PATTERN - Cardiovascular Exam Cardiovascular Exam: REGULAR RHYTHM, +S1, +S2 - GI/Abdominal Exam GI & Abdominal Exam: Soft, Tenderness (left lateral abdomen above level of umbilicus), Normal Bowel Sounds - Extremities Exam Extremities Exam: Normal Capillary Refill, Normal Inspection. absent: Pedal Edema - Neurological Exam Neurological Exam: Alert, Awake, Oriented x3 - Psychiatric Exam Psychiatric exam: Normal Affect, Normal Mood - Skin Skin Exam: Dry, Warm Assessment and Plan - Assessment and Plan (Free Text) Assessment: 63 yo M with pmhx of BPH, emphysema, and HTN admitted for obstructing left sided nephrolithiasis, 6mm stone seen on CT. Plan: 1. Obstructive nephrolithiasis - Flomax 0.4 mg daily - IV fluid hydration 200 ml/hr - Urine and blood culture pending f/u - Toradol 15 mg Q6 PRN for pain - CT abdomen/pelvis - 6mm obstructing calculus proximal/mid left ureter with moderate to significant left-sided hydronephrosis - Urology consult - Dr. Huang, recs appreciated f/u - NPO overnight - F/u BMP in am - Strain urine 2. Hypertension - Restart enalapril 20 mg - Monitor BP 3. Constipation - Miralax QHS 4. COPD, emphysema - Duoneb TID 5. DVT prophylaxis - lovenox <Tyesha Mcneil - Last Filed: 09/08/18 16:53> Objective - Vital Signs/Intake and Output Vital Signs (last 24 hours): Temp Pulse Resp BP Pulse Ox 97.8 F 78 18 147/89 97 09/08/18 16:05 09/08/18 16:05 09/08/18 16:05 09/08/18 16:05 09/08/18 16:05 Intake and Output: 09/08/18 09/08/18 06:59 18:59 Intake Total 950 Balance 950 - Medications Medications: Current Medications Albuterol/Ipratropium (Duoneb 3 Mg/0.5 Mg (3 Ml) Ud) 3 ml INH RTID PRN PRN Reason: Shortness of Breath Enalapril Maleate (Vasotec) 20 mg PO DAILY [facility] Last Admin: 09/08/18 09:46 Dose: 20 mg Enoxaparin Sodium (Lovenox) 40 mg SC DAILY [facility]; Protocol Hydromorphone HCl (Dilaudid) 0.5 mg IVP Q10M PRN PRN Reason: Pain, moderate (4-7) Sodium Chloride (Sodium Chloride 0.9%) 1,000 mls @ 200 mls/hr IV .Q5H [facility] Stop: 09/08/18 22:41 Last Admin: 09/08/18 01:50 Dose: 200 mls/hr Lactated Ringer's (Lactated Ringer's) 1,000 mls @ 125 mls/hr IV .Q8H [facility] Morphine Sulfate (Morphine) 2 mg IVP Q4 PRN PRN Reason: Pain, severe (8-10) Morphine Sulfate (Morphine) 1 mg IVP Q4 PRN PRN Reason: Pain, moderate (4-7) Ondansetron HCl (Zofran Inj) 4 mg IVP Q6 PRN PRN Reason: Nausea/Vomiting Polyethylene Glycol (Miralax) 17 gm PO HS [facility] Last Admin: 09/07/18 22:57 Dose: 17 gm Tamsulosin HCl (Flomax) 0.4 mg PO DAILY [facility] Last Admin: 09/08/18 09:46 Dose: 0.4 mg - Labs Labs: 09/07/18 17:10 09/08/18 15:30 Attending/Attestation - Attestation I have personally seen and examined this patient.: Yes I have fully participated in the care of the patient.: Yes I have reviewed all pertinent clinical information, including history, physical exam and plan: Yes Notes (Text): Obstructing Uropathy HTN Acute Kidney Injury on CKD Stage III - change antihypertensive to Norvasc , d/c OMEGA inh due to KAR
[2018-09-08] MEDS ORDERED: ePHEDrine 50 mg/ml Inj ONE (12:39)
[2018-09-08] MEDS ORDERED: Succinylcholine 200 mg/10 ml Inj IV ONE (12:39)
[2018-09-08] MEDS ORDERED: Lidocaine 4% (Laryng-O-Jet) Kit MM ONE (12:40)
[2018-09-08] MEDS ORDERED: Lidocaine 2% Jelly (Uro-Jet) ONE (12:46)
[2018-09-08] MEDS ORDERED: cefTRIAXone (Rocephin) 1 gm Inj ONE (12:46)
[2018-09-08] MEDS ORDERED: Lactated Ringer's 1,000 ML IV ONE (12:57)
[2018-09-08] MEDS ORDERED: Dexamethasone 4 mg/1 ml ONE (13:39)
[2018-09-08] MEDS ORDERED: Lactated Ringer's 1,000 ML IV SCH (14:15)
--- NOTE | 2018-09-08 14:59 | CP.PCM.DIS ---
<Jesus Washington - Last Filed: 09/08/18 14:57> Provider - Provider Date of Admission: 09/07/18 20:37 Attending physician: Koyb Zamora Primary care physician: [facility] Consults: Urology - Dr. Huang Time Spent in preparation of Discharge (in minutes): 30 Diagnosis - Discharge Diagnosis (1) Hydronephrosis with renal calculous obstruction Status: Acute Hospital Course - Lab Results Lab Results: Most Recent Lab Values WBC 11.0 K/uL (4.8-10.8) H 09/07/18 17:10 RBC 4.91 Mil/uL (4.40-5.90) 09/07/18 17:10 Hgb 14.7 g/dL (12.0-18.0) 09/07/18 17:10 Hct 44.2 % (35.0-51.0) 09/07/18 17:10 MCV 90.0 fl (80.0-94.0) 09/07/18 17:10 MCH 29.9 pg (27.0-31.0) 09/07/18 17:10 MCHC 33.2 g/dL (33.0-37.0) 09/07/18 17:10 RDW 13.5 % (11.5-14.5) 09/07/18 17:10 Plt Count 207 K/uL (130-400) 09/07/18 17:10 MPV 11.0 fl (7.2-11.7) 09/07/18 17:10 Neut % (Auto) 78.2 % (50.0-75.0) H 09/07/18 17:10 Lymph % (Auto) 8.1 % (20.0-40.0) L 09/07/18 17:10 [place] % (Auto) 12.5 % (0.0-10.0) H 09/07/18 17:10 Eos % (Auto) 0.4 % (0.0-4.0) 09/07/18 17:10 Baso % (Auto) 0.8 % (0.0-2.0) 09/07/18 17:10 Neut # (Auto) 8.6 K/uL (1.8-7.0) H 09/07/18 17:10 Lymph # (Auto) 0.9 K/uL (1.0-4.3) L 09/07/18 17:10 [place] # (Auto) 1.4 K/uL (0.0-0.8) H 09/07/18 17:10 Eos # (Auto) 0.0 K/uL (0.0-0.7) 09/07/18 17:10 Baso # (Auto) 0.1 K/uL (0.0-0.2) 09/07/18 17:10 Neutrophils % (Manual) 82 % (42-75) H 09/07/18 17:10 Band Neutrophils % 2 % (0-2) 09/07/18 17:10 Lymphocytes % (Manual) 4 % (20-50) L 09/07/18 17:10 Reactive Lymphs % 2 % (0-0) H 09/07/18 17:10 Monocytes % (Manual) 10 % (0-10) 09/07/18 17:10 Platelet Estimate Normal (NORMAL) 09/07/18 17:10 Large Platelets Present 09/07/18 17:10 Sodium 137 mmol/l (132-148) 09/07/18 17:10 Potassium 4.2 MMOL/L (3.6-5.0) 09/07/18 17:10 Chloride 102 mmol/L (98-107) 09/07/18 17:10 Carbon Dioxide 28 mmol/L (22-30) 09/07/18 17:10 Anion Gap 11 (10-20) 09/07/18 17:10 BUN 19 mg/dl (9-20) 09/07/18 17:10 Creatinine 1.8 mg/dl (0.8-1.5) H 09/07/18 17:10 Est GFR ( Amer) 46 09/07/18 17:10 Est GFR (Non-Af Amer) 38 09/07/18 17:10 Random Glucose 114 mg/dL (75-110) H 09/07/18 17:10 Lactic Acid 0.6 MMOL/L (0.7-2.1) L 09/07/18 17:10 Calcium 8.8 mg/dL (8.4-10.2) 09/07/18 17:10 Total Bilirubin 0.7 mg/dl (0.2-1.3) 09/07/18 17:10 AST 22 U/L (17-59) 09/07/18 17:10 ALT 30 U/L (21-72) 09/07/18 17:10 Alkaline Phosphatase 73 U/L (38-126) 09/07/18 17:10 Total Protein 7.2 G/DL (6.3-8.2) 09/07/18 17:10 Albumin 3.8 g/dL (3.5-5.0) 09/07/18 17:10 Globulin 3.4 gm/dL (2.2-3.9) 09/07/18 17:10 Albumin/Globulin Ratio 1.1 (1.0-2.1) 09/07/18 17:10 Urine Color Yellow (YELLOW) 09/07/18 19:52 Urine Clarity Slighty-cloudy (Clear) 09/07/18 19:52 Urine pH 6.0 (5.0-8.0) 09/07/18 19:52 Ur Specific [place] 1.011 (1.003-1.030) 09/07/18 19:52 Urine Protein Negative mg/dL (NEGATIVE) 09/07/18 19:52 Urine Glucose (UA) Neg mg/dL (Normal) 09/07/18 19:52 Urine Ketones Trace mg/dL (NEGATIVE) 09/07/18 19:52 Urine Blood Small (NEGATIVE) 09/07/18 19:52 Urine Nitrate Negative (NEGATIVE) 09/07/18 19:52 Urine Bilirubin Negative (NEGATIVE) 09/07/18 19:52 Urine Urobilinogen 0.2-1.0 mg/dL (0.2-1.0) 09/07/18 19:52 Ur Leukocyte Esterase Neg Kelly/uL (Negative) 09/07/18 19:52 Urine RBC (Auto) 1 /hpf (0-3) 09/07/18 19:52 Urine Microscopic WBC 2 /hpf (0-5) 09/07/18 19:52 Urine Bacteria Rare (<OCC) 09/07/18 19:52 - Hospital Course Hospital Course: 63 yo M with pmhx of BPH, emphysema, and HTN admitted for obstructing left sided nephrolithiasis, 6mm stone seen on CT. While in house patient was started on flomax 0.4 mg daily, toradol 15 mg Q6 PRN for pain. Urology was consulted and Dr. Huang took patient into the OR for cystotomy with stent placing using a C arm. Patient was given duoneb TID for emphysema therapy and started on miralax for constipation. His enalapril was restarted for his HTN. Dr. Huang ordered a KUB and the results will be faxed to his office as soon as results are gathered. Patient will follow up with Dr. Huang in one week. Patient will be started on norvasc, and take naproxen for pain control. He will also be prescribed flomax. Patient is stable for discharge upon voiding, eating, and pain control. - Date & Time of H&P Date of H&P: 09/08/18 Time of H&P: 14:59 Discharge Exam - Head Exam Head Exam: ATRAUMATIC, NORMOCEPHALIC - Eye Exam Eye Exam: Normal appearance - ENT Exam ENT Exam: Mucous Membranes Moist - Neck Exam Neck exam: Normal Inspection - Respiratory Exam Respiratory Exam: Clear to PA & Lateral, NORMAL BREATHING PATTERN - Cardiovascular Exam Cardiovascular Exam: REGULAR RHYTHM, +S1, +S2 - GI/Abdominal Exam GI & Abdominal Exam: Normal Bowel Sounds Additional comments: s/p cystostomy with stent placement - Extremities Exam Extremities exam: normal capillary refill, normal inspection, pedal pulses present - Neurological Exam Neurological exam: Alert, Oriented x3 - Psychiatric Exam Psychiatric exam: Normal Affect, Normal Mood - Skin Skin Exam: Dry, Intact, Warm Discharge Plan - Discharge Medications Prescriptions: amLODIPine [Norvasc] 5 mg PO DAILY #30 tab Tamsulosin [Flomax] 0.4 mg PO DAILY #30 cap - Follow Up Plan Condition: FAIR Disposition: HOME/ ROUTINE Additional Instructions: follow up with on saturday09/15/18 call for appt time [phone] Gomez in [facility] on 09/12/18 @1:40 appt [facility] next wk, needs rpt BMP to ff up Creatinine Referrals: [facility] [Outside] Juan Diego Huang MD [Medical Doctor] - Clinical Quality Measures - Date & Time of Discharge Summary Date of Discharge Summary: 09/08/18 Time of Discharge Summary: 15:04 <Tyesha Mcneil - Last Filed: 09/08/18 16:57> Provider - Provider Date of Admission: 09/07/18 20:37 Attending physician: Koby Jules [facility] Course - Lab Results Lab Results: Most Recent Lab Values WBC 11.0 K/uL (4.8-10.8) H 09/07/18 17:10 RBC 4.91 Mil/uL (4.40-5.90) 09/07/18 17:10 Hgb 14.7 g/dL (12.0-18.0) 09/07/18 17:10 Hct 44.2 % (35.0-51.0) 09/07/18 17:10 MCV 90.0 fl (80.0-94.0) 09/07/18 17:10 MCH 29.9 pg (27.0-31.0) 09/07/18 17:10 MCHC 33.2 g/dL (33.0-37.0) 09/07/18 17:10 RDW 13.5 % (11.5-14.5) 09/07/18 17:10 Plt Count 207 K/uL (130-400) 09/07/18 17:10 MPV 11.0 fl (7.2-11.7) 09/07/18 17:10 Neut % (Auto) 78.2 % (50.0-75.0) H 09/07/18 17:10 Lymph % (Auto) 8.1 % (20.0-40.0) L 09/07/18 17:10 [place] % (Auto) 12.5 % (0.0-10.0) H 09/07/18 17:10 Eos % (Auto) 0.4 % (0.0-4.0) 09/07/18 17:10 Baso % (Auto) 0.8 % (0.0-2.0) 09/07/18 17:10 Neut # (Auto) 8.6 K/uL (1.8-7.0) H 09/07/18 17:10 Lymph # (Auto) 0.9 K/uL (1.0-4.3) L 09/07/18 17:10 [place] # (Auto) 1.4 K/uL (0.0-0.8) H 09/07/18 17:10 Eos # (Auto) 0.0 K/uL (0.0-0.7) 09/07/18 17:10 Baso # (Auto) 0.1 K/uL (0.0-0.2) 09/07/18 17:10 Neutrophils % (Manual) 82 % (42-75) H 09/07/18 17:10 Band Neutrophils % 2 % (0-2) 09/07/18 17:10 Lymphocytes % (Manual) 4 % (20-50) L 09/07/18 17:10 Reactive Lymphs % 2 % (0-0) H 09/07/18 17:10 Monocytes % (Manual) 10 % (0-10) 09/07/18 17:10 Platelet Estimate Normal (NORMAL) 09/07/18 17:10 Large Platelets Present 09/07/18 17:10 Sodium 139 mmol/l (132-148) 09/08/18 15:30 Potassium 4.2 MMOL/L (3.6-5.0) 09/08/18 15:30 Chloride 107 mmol/L (98-107) 09/08/18 15:30 Carbon Dioxide 27 mmol/L (22-30) 09/08/18 15:30 Anion Gap 9 (10-20) L 09/08/18 15:30 BUN 25 mg/dl (9-20) H 09/08/18 15:30 Creatinine 1.9 mg/dl (0.8-1.5) H 09/08/18 15:30 Est GFR ( Amer) 43 09/08/18 15:30 Est GFR (Non-Af Amer) 36 09/08/18 15:30 Random Glucose 103 mg/dL (75-110) 09/08/18 15:30 Lactic Acid 0.6 MMOL/L (0.7-2.1) L 09/07/18 17:10 Calcium 8.5 mg/dL (8.4-10.2) 09/08/18 15:30 Total Bilirubin 0.7 mg/dl (0.2-1.3) 09/07/18 17:10 AST 22 U/L (17-59) 09/07/18 17:10 ALT 30 U/L (21-72) 09/07/18 17:10 Alkaline Phosphatase 73 U/L (38-126) 09/07/18 17:10 Total Protein 7.2 G/DL (6.3-8.2) 09/07/18 17:10 Albumin 3.8 g/dL (3.5-5.0) 09/07/18 17:10 Globulin 3.4 gm/dL (2.2-3.9) 09/07/18 17:10 Albumin/Globulin Ratio 1.1 (1.0-2.1) 09/07/18 17:10 Urine Color Yellow (YELLOW) 09/07/18 19:52 Urine Clarity Slighty-cloudy (Clear) 09/07/18 19:52 Urine pH 6.0 (5.0-8.0) 09/07/18 19:52 Ur Specific [place] 1.011 (1.003-1.030) 09/07/18 19:52 Urine Protein Negative mg/dL (NEGATIVE) 09/07/18 19:52 Urine Glucose (UA) Neg mg/dL (Normal) 09/07/18 19:52 Urine Ketones Trace mg/dL (NEGATIVE) 09/07/18 19:52 Urine Blood Small (NEGATIVE) 09/07/18 19:52 Urine Nitrate Negative (NEGATIVE) 09/07/18 19:52 Urine Bilirubin Negative (NEGATIVE) 09/07/18 19:52 Urine Urobilinogen 0.2-1.0 mg/dL (0.2-1.0) 09/07/18 19:52 Ur Leukocyte Esterase Neg Kelly/uL (Negative) 09/07/18 19:52 Urine RBC (Auto) 1 /hpf (0-3) 09/07/18 19:52 Urine Microscopic WBC 2 /hpf (0-5) 09/07/18 19:52 Urine Bacteria Rare (<OCC) 09/07/18 19:52 Attending/Attestation - Attestation I have personally seen and examined this patient.: Yes I have fully participated in the care of the patient.: Yes I have reviewed all pertinent clinical information, including history, physical exam and plan: Yes Notes (Text): Obstructive Uropathy due to Ureteral Stome s/p Stent placement HTN KAR on CKD stage III COPD chronic - ff up with Dr Huang on Saturday for further mgt of stone - change antihypertensive to Norvasc 5 mg daily - cont Flomax -appt [facility] clinic next wk , need rpt BMP to ff up on Creatinine
--- NOTE | 2018-09-08 15:48 | RAD ---
Date of service: 09/08/2018 HISTORY: s/p left stent placement COMPARISON: No prior. FINDINGS: A solitary LPO projection is submitted for interpretation. BOWEL: Nonobstructive bowel gas pattern appreciated with double-j left ureteral stent identified in position. There is an approximate 5-6 mm calculus abutting the level of the proximal left ureter adjacent to the stent at the inferior endplate of L3 which appears slightly cephalad than the previous location at the mid L4 level on prior abdomen and pelvis CT exam 09/07/2018. No additional radiodense urolithiasis seen bilaterally. BONES: Normal. OTHER FINDINGS: No prominent free intra peritoneal gas collection. IMPRESSION: Previously demonstrated left ureteral calculus appears slightly more cephalad in position as discussed above but abuts the proximal segment of the double-J left ureteral stent identified in the interval. The remainder of the examination appears unremarkable.
[2018-09-08 15:49] VITALS: O2SAT 97
--- NOTE | 2018-09-08 16:29 | CARD ---
APPROVED REPORT Date of service: 09/08/2018 EKG Measurement Heart [id number] <Conclusion> Normal sinus rhythm Nonspecific ST and T wave abnormality Abnormal ECG
[2018-09-08 16:35] LABS: CALCIUM 8.5 mg/dL (8.4-10.2)
[2018-09-08 16:38] VITALS: BP 147/89; PULSE 78; TEMP 97.8
[2018-09-08] MEDS: POLYETHYLENE GLYCOL 3350 17 GM/Dose PACKET PO SCH (23:14)
--- NOTE | 2018-09-09 16:56 | RAD ---
Date of service: 09/08/2018 PROCEDURE: Intraoperative Fluoroscopy. HISTORY: LEFT URETERAL STENT PLACEMENT FINDINGS: Fluoroscopic assistance was provided for retrograde, stent placement. Please refer to the operative report from CELESTE Salcedo.
--- NOTE | 2018-09-10 07:25 | OP ---
PROCEDURE DATE: 09/08/2018 SURGEON: Juan Diego Huang MD ANESTHESIOLOGIST: Radha Kenney MD ANESTHESIA: General Endo PREOP DIAGNOSIS: obstructing left proximal ureteral calculus. POSTOP DIAGNOSIS: same PROCEDURE: Cystoscopy stent placement INDICATION: The patient admitted through the emergency room with obstructing left proximal ureteral calculus. DESCRIPTION OF PROCEDURE: The patient was brought to the OR, prepped and draped in the usual manner. A #21 cystourethroscope instituted into the urethra; however, there was a stricture in the bulbous urethra. A urethrotome was then used to cut the stricture. Once this accomplished, a #21 cystourethroscope was introduced into the bladder. A 3.5 wire was introduced into the left orifice of the kidney. Double J stent and left over the wire removed. Good placement of the stent. Calculous appeared to be in the proximal left ureter. KUB will be done to specify diagnosis. Juan Diego Huang MD
== END 2018-09-08 23:19 | disposition home or self-care (01) ==
LOC: H.ER 15:43 → H.ERHOLD 20:37 → INTOOBSV 20:37 → H.TEL 09-08 00:14
PROVIDERS: ADMIT Internal Medicine; ATTEND Internal Medicine
DX: N13.2 Hydronephrosis with renal and ureteral calculous obstruction (principal); N32.3 Diverticulum of bladder; N18.3 Chronic kidney disease, stage 3 (moderate); I12.9 Hypertensive chronic kidney disease with stage 1 through stage 4 chronic kidney disease, or unspecified chronic kidney disease; K40.90 Unilateral inguinal hernia, without obstruction or gangrene, not specified as recurrent; J43.9 Emphysema, unspecified; K59.00 Constipation, unspecified; N40.0 Benign prostatic hyperplasia without lower urinary tract symptoms; F17.210 Nicotine dependence, cigarettes, uncomplicated; Z87.442 Personal history of urinary calculi
CPT/HCPCS: 36415; 52005; 71045; 74018; 74176; 76000; 80048; 80053; 81003; 83605; 85025; 87040; 87086; 93005; 99285; C2617; G0378; J0330; J0696; J1100; J1885; J2250; J2405; J2704; J2765; J3010; J7030; J7120

== ENCOUNTER 2018-09-11 05:11 | Emergency (ER) | payer MEDICAID, OTHER ==
[2018-09-11 05:23] VITALS: BP 178/112; PULSE 76; RESP 17; TEMP 97.4; O2SAT 99
--- NOTE | 2018-09-11 06:14 | ED PDOC ---
HPI: Male Pain Time Seen by Provider: 09/11/18 05:34 Chief Complaint (Nursing): Abdominal Pain Chief Complaint (Provider): Male Genitourinary History Per: Patient History/Exam Limitations: no limitations Onset/Duration Of Symptoms: Days (2x) Current Symptoms Are (Timing): Still Present Severity: Moderate Associated Symptoms: Other (dysuria, hematuria) Additional Complaint(s): 63 year old male recently diagnosed with kidney stones and a past medical history of hypertension presents to the ED with complaints of male genitourinary symptoms that have been ongoing for 2x days. Patient states he was recently seen in the ED for similar complaints, 2x days ago, when he was diagnosed with kidney stones and had a stent put in by Dr.M Huang. Patient states he was prescribed medicine, but has not been compliant with all of them. Patient states he has a small amount of blood with urination intermittently, and intermittent pain with urination. Patient denies having any new complaints, patient was sleeping comfortably in ED prior to HPI and PE. PMD: [facility] Past Medical History Reviewed: Historical Data, Nursing Documentation, Vital Signs Vital Signs: Last Vital Signs Temp 97.4 F L 09/11/18 05:18 Pulse 76 09/11/18 05:18 Resp 17 09/11/18 05:18 BP 178/112 H 09/11/18 05:18 Pulse Ox 99 09/11/18 05:18 - Medical History PMH: Benign Prostatic Hyperplasia, Bronchitis, COPD, HTN, Kidney Stones, Chronic Kidney Disease Denies: HIV - Surgical History Surgical History: Appendectomy, Hernia Repair - Family History Family History: States: No Known Family Hx - Social History Alcohol: None Drugs: Denies - Home Medications Home Medications: Ambulatory Orders Medication Instructions Recorded RX: Naproxen [Naprosyn] 500 mg PO Q12H #20 tab 06/30/18 RX: Tamsulosin [Flomax] 0.4 mg PO DAILY #30 cap 09/08/18 amLODIPine [Norvasc] 5 mg PO DAILY #30 tab 09/08/18 - Allergies Allergies/Adverse Reactions: Allergies Allergy/AdvReac Type Severity Reaction Status Date / Time moxifloxacin [From Avelox] Allergy RASH Verified 09/07/18 21:38 Review of Systems ROS Statement: Except As Marked, All Systems Reviewed And Found Negative Genitourinary Male: Positive for: Dysuria, Hematuria Physical Exam - Reviewed Nursing Documentation Reviewed: Yes Vital Signs Reviewed: Yes - Physical Exam Appears: Positive for: Well, Non-toxic, No Acute Distress (patient is comfortable, was asleep upon HPI and PE) Head Exam: Positive for: ATRAUMATIC, NORMOCEPHALIC Skin: Positive for: Normal Color, Warm, Dry Eye Exam: Positive for: Normal appearance, EOMI Cardiovascular/Chest: Positive for: Regular Rate, Rhythm Respiratory: Positive for: Normal Breath Sounds. Negative for: Respiratory Distress Gastrointestinal/Abdominal: Positive for: Normal Exam, Soft. Negative for: Tenderness Extremity: Positive for: Normal ROM Neurologic/Psych: Positive for: Alert, Oriented (3x) - ECG O2 Sat by Pulse Oximetry: 99 (RA) Pulse Ox Interpretation: Normal Medical Decision Making Medical Decision Makin:34 Initial impression: 63 year old male with dysuria and hematuria. Initial plan: * dipstick * flomax 0.4 mg PO * toradol 30 mg IM * reevaluation Scribe Attestation: Documented byMigdalia Oh, acting as a scribe for Og Marcelino MD. Provider Scribe Attestation: All medical record entries made by the Scribe were at my direction and personally dictated by me. I have reviewed the chart and agree that the record accurately reflects my personal performance of the history, physical exam, medical decision making, and the department course for this patient. I have also personally directed, reviewed, and agree with the discharge instructions and disposition. Disposition - Clinical Impression Clinical Impression: Ureteral stone - Patient ED Disposition Is Patient to be Admitted: No Doctor Will See Patient In The: Office Counseled Patient/Family Regarding: Studies Performed, Diagnosis, Need For Followup - Disposition Referrals: [facility] [Outside] Juan Diego Huang MD [Medical Doctor] - Disposition: Routine/Home Disposition Time: 06:30 Condition: GOOD Additional Instructions: HUSSEIN HANSON, thank you for letting us take care of you today. Your provider was Og Marcelino MD and you were treated for SPASMS AND PAIN,HX OF KIDNEY STONE. The emergency medical care you received today was directed at your acute symptoms. If you were prescribed any medication, please fill it and take as directed. It may take several days for your symptoms to resolve. Return to the Emergency Department if your symptoms worsen, do not improve, or if you have any other problems. Please contact your doctor or call one of the physicians/clinics you have been referred to that are listed on the Patient Visit Information form that is included in your discharge packet. Bring any paperwork you were given at discharge with you along with any medications you are taking to your follow up visit. Our treatment cannot replace ongoing medical care by a primary care provider outside of the emergency department. Thank you for allowing the [facility] team to be part of your care today. If you had an X-Ray or CT scan: A Radiologist will review the ED reading if any change in treatment is needed we will contact you. If you had a blood, urine, or wound culture: It will take several days for the results, if any change in treatment is needed we will contact you. If you had an STI test: It will take 48 hours for the results. Please call after 1 week if you have not heard back. Instructions: Kidney Stones in Adults
== END 2018-09-11 06:48 | disposition home or self-care (01) ==
LOC: H.ER 05:11
DX: N20.1 Calculus of ureter (principal); N18.9 Chronic kidney disease, unspecified; I12.9 Hypertensive chronic kidney disease with stage 1 through stage 4 chronic kidney disease, or unspecified chronic kidney disease; J44.9 Chronic obstructive pulmonary disease, unspecified; N40.0 Benign prostatic hyperplasia without lower urinary tract symptoms; Z87.442 Personal history of urinary calculi
CPT/HCPCS: 96372; 99282; J1885

== ENCOUNTER 2018-09-12 10:19 | Emergency (ER) | payer MEDICAID, OTHER ==
[2018-09-12 10:23] VITALS: BMI 26.4
[2018-09-12 10:24] VITALS: O2SAT 98
--- NOTE | 2018-09-12 10:44 | ED PDOC ---
HPI: Male Pain Time Seen by Provider: 09/12/18 10:35 Chief Complaint (Nursing): Male Genitourinary History Per: Patient Onset/Duration Of Symptoms: Days (7) Current Symptoms Are (Timing): Still Present Severity: Moderate Pain Scale Rating Of: 4 Quality Of Discomfort: Unable To Describe Associated Symptoms: Urinary Symptoms. denies: Fever, Nausea, Vomiting, Diarrhea Alleviating Factors: None Additional Complaint(s): Bilat lower back pain radiating to abd x 1 week. S/p left sided ureteral stent for kidney stone 1 week ago. denies fever, nausea vomiting or dysuria. No hematuria Past Medical History Vital Signs: Last Vital Signs Temp 98.3 F 09/12/18 10:23 Pulse 88 09/12/18 10:23 Resp 20 09/12/18 10:23 BP 194/105 H 09/12/18 10:23 Pulse Ox 98 09/12/18 10:23 - Medical History PMH: Benign Prostatic Hyperplasia, Bronchitis, COPD, HTN, Kidney Stones, Chronic Kidney Disease Denies: HIV - Surgical History Surgical History: Appendectomy, Hernia Repair - Family History Family History: States: Unknown Family Hx - Home Medications Home Medications: Ambulatory Orders Medication Instructions Recorded Naproxen [Naprosyn] 500 mg PO Q12H #20 tab 06/30/18 Tamsulosin [Flomax] 0.4 mg PO DAILY #30 cap 09/08/18 amLODIPine [Norvasc] 5 mg PO DAILY #30 tab 09/08/18 traMADol [Ultram] 50 mg PO Q8 #10 tab 09/12/18 - Allergies Allergies/Adverse Reactions: Allergies Allergy/AdvReac Type Severity Reaction Status Date / Time moxifloxacin [From Avelox] Allergy RASH Verified 09/12/18 10:41 Review of Systems ROS Statement: Except As Marked, All Systems Reviewed And Found Negative Constitutional: Negative for: Fever Gastrointestinal: Positive for: Abdominal Pain Genitourinary Male: Negative for: Dysuria, Frequency, Hematuria Musculoskeletal: Positive for: Back Pain Physical Exam - Reviewed Nursing Documentation Reviewed: Yes Vital Signs Reviewed: Yes - Physical Exam Appears: Positive for: Non-toxic, No Acute Distress Head Exam: Positive for: ATRAUMATIC, NORMAL INSPECTION, NORMOCEPHALIC Skin: Positive for: Normal Color, Warm, DRY Eye Exam: Positive for: EOMI, Normal appearance, PERRL ENT: Positive for: Normal ENT Inspection Neck: Positive for: Normal, Painless ROM Cardiovascular/Chest: Positive for: Regular Rate, Rhythm Respiratory: Positive for: CNT, Normal Breath Sounds Gastrointestinal/Abdominal: Positive for: Soft, Tenderness (Mild suprapubic), Hernia (Inguinal) Back: Positive for: Normal Inspection. Negative for: L CVA Tenderness, R CVA Tenderness Extremity: Positive for: Normal ROM Neurologic/Psych: Positive for: Alert, Oriented - Laboratory Results Result Diagrams: 09/12/18 10:56 09/12/18 10:56 - ECG O2 Sat by Pulse Oximetry: 98 Medical Decision Making Medical Decision Making: Discussed with Dr. Huang. He is arranging for Pt to have ESWOL. Can dc home on antibiotics, currently on Bactrim and pain meds Disposition - Clinical Impression Clinical Impression: Kidney stone - Patient ED Disposition Is Patient to be Admitted: No Counseled Patient/Family Regarding: Studies Performed, Diagnosis, Need For Followup, Rx Given - Disposition Referrals: Juan Diego Huang MD [Medical Doctor] - Disposition: Routine/Home Disposition Time: 15:45 Condition: FAIR Prescriptions: traMADol [Ultram] 50 mg PO Q8 #10 tab Instructions: Kidney Stones in Adults, Extracorporeal Shock Wave Lithotripsy for Kidney Stones Forms: [employer] (Serbian)
[2018-09-12 11:22] LABS: BASO # 0.1 K/uL (0.0-0.2); BASO % 0.7 % (0.0-2.0); EOS # 0.1 K/uL (0.0-0.7); EOS % 0.8 % (0.0-4.0); HEMOGLOBIN 14.8 g/dL (12.0-18.0); LYMPH # 0.8 K/uL (1.0-4.3); MEAN CELL VOLUME 89.9 fl (80.0-94.0); MEAN CORPUSCULAR HEMOGLOBIN 29.7 pg (27.0-31.0); MEAN PLATELET VOLUME 10.4 fl (7.2-11.7); MONO # 1.1 K/uL (0.0-0.8); MONO % 7.5 % (0.0-10.0); NEUT # 11.9 K/uL (1.8-7.0); NRBC % 0.1 % (0.0-0.0); PLATELET COUNT 305 K/uL (130-400); RBC 4.98 Mil/uL (4.40-5.90); RED CELL DISTRIBUTION WIDTH 13.6 % (11.5-14.5)
[2018-09-12 11:32] LABS: URINE BACTERIA RARE (<OCC); URINE BILIRUBIN NEGATIVE (NEGATIVE); URINE BLOOD LARGE (NEGATIVE); URINE CLARITY CLOUDY (Clear); URINE COLOR YELLOW (YELLOW); URINE GLUCOSE (UA) NEG (Normal); URINE LEUKOCYTE ESTERASE SMALL Leu/uL (Negative); URINE PROTEIN 100 mg/dL (NEGATIVE); URINE UROBILINOGEN 0.2-1.0 mg/dL (0.2-1.0)
[2018-09-12 11:34] LABS: ALB/GLOB RATIO 1.1 (1.0-2.1); ALBUMIN 4.1 g/dL (3.5-5.0); CALCIUM 9.2 mg/dL (8.4-10.2)
[2018-09-12 13:11] LABS: EOSINOPHIL 2 % (0-7); LYMPHOCYTE 7 % (20-50); MONOCYTE 9 % (0-10); NEUTROPHIL 82 % (42-75); PLATELET ESTIMATE NORMAL (NORMAL); TOTAL CELLS COUNTED 100
[2018-09-12 13:12] LABS: ANISOCYTOSIS SLIGHT; LARGE PLATELETS PRESENT; TEARDROP CELLS SLIGHT
--- NOTE | 2018-09-12 13:37 | CT ---
Date of service: 09/12/2018 PROCEDURE: CT Abdomen and Pelvis without intravenous contrast HISTORY: r/o kidney stone COMPARISON: Noncontrast abdomen pelvis CT 09/07/2018. TECHNIQUE: Helical CT of the abdomen and pelvis was performed without oral or intravenous contrast as per referring physician request. Coronal and sagittal reformats were generated. Contrast dose: None Radiation dose: Total exam DLP = 678.85 mGy-cm. This CT exam was performed using one or more of the following dose reduction techniques: Automated exposure control, adjustment of the mA and/or kV according to patient size, and/or use of iterative reconstruction technique. FINDINGS: LOWER THORAX: Stable lung base including linear atelectasis or fibrosis and small hiatal hernia. LIVER: Unremarkable. No gross lesion or ductal dilatation. GALLBLADDER AND BILE DUCTS: Moderate gallbladder distention reiterated with numerous calculi in the lumen once again. No gross mural thickening or pericholecystic fluid evident. PANCREAS: Unremarkable. No gross lesion or ductal dilatation. SPLEEN: Unremarkable. ADRENALS: Unremarkable. No mass. KIDNEYS AND URETERS: Patient is now seen to be status post left double-J ureteral stent deployment with proximal segment coiled at the lateral portion of the left renal pelvis and the distal segment coiled at the left side of the urinary bladder. The prior 6 mm calculus identified abutting the lateral side of the stent at the L4 vertebral body level, not significantly changed in position. Moderate left hydronephrosis does not appear significantly changed in the interval. There is mild right hydroureteronephrosis which may be on the basis of distended urinary bladder. No radiodense urolithiasis is seen associate with the right kidney or ureter at this time. Mild right perinephric reaction is appreciated. VASCULATURE: Unremarkable. No aortic aneurysm. Nonaneurysmal abdominal aortic calcific atherosclerotic changes are identified. BOWEL: Moderately prominent retained fecal material is seen proximal half of the colon, [id number] otherwise. There is mild nonspecific dilatation of a few small-bowel loops at the central/left nnamdi abdomen. No related mesenteric edema. Stomach is collapsed and not well evaluated. APPENDIX: Appendix is not identified. No CT evidence of appendicitis. PERITONEUM: Unremarkable. No free fluid. No free air. LYMPH NODES: Unremarkable. No enlarged lymph nodes. BLADDER: Urinary bladder is distended with no radiodense urolithiasis associated. A right inguinal hernia is reiterated involving right-sided urinary bladder once again, possibly increased. REPRODUCTIVE: Moderate prostate enlargement noted. BONES: No acute fracture. OTHER FINDINGS: None. IMPRESSION: 1. Interval left double-J ureteral stent placement identified with 6 mm intraureteral calculus remaining at the L4 level now abutting the stent. Moderate left hydroureteronephrosis persists, appearing unchanged. There is now mild right hydroureteronephrosis without radiodense urolithiasis identified at the right side. Urinary bladder is rather distended and remains involved in a right inguinal hernia. Consider at least partial urinary bladder outlet obstruction. Radiolucent distal right ureteral calculus or interval stricture is not excluded causing right-sided hydronephrosis the urinary bladder distension may be the cause. Further clinical correlation might. 2. Cholelithiasis. Findings discussed with Dr. Shelby with written down read back verification 09/12/2018 1:15 p.m..
[2018-09-12 17:45] VITALS: BP 143/84; PULSE 84; RESP 21; TEMP 98.7
== END 2018-09-12 16:28 | disposition home or self-care (01) ==
LOC: H.ER 10:19
DX: N20.0 Calculus of kidney (principal); K40.90 Unilateral inguinal hernia, without obstruction or gangrene, not specified as recurrent
CPT/HCPCS: 74176; 80053; 81003; 85025; 87040; 87086; 96374; 99284; J2270

== ENCOUNTER 2018-09-13 11:21 | Emergency (ER) | payer MEDICAID, OTHER ==
[2018-09-13 11:22] VITALS: BMI 26.4
--- NOTE | 2018-09-13 12:18 | RAD ---
Date of service: 09/13/2018 HISTORY: Back pain COMPARISON: Chest radiograph dated 09/08/2018. FINDINGS: LUNGS: No active pulmonary disease. PLEURA: No significant pleural effusion identified, no pneumothorax apparent. CARDIOVASCULAR: Aortic atherosclerotic calcifications. Normal cardiac size. OSSEOUS STRUCTURES: Change. VISUALIZED UPPER ABDOMEN: Normal. OTHER FINDINGS: None. IMPRESSION: No active disease.
[2018-09-13 12:33] LABS: BASO # 0.1 K/uL (0.0-0.2); BASO % 0.5 % (0.0-2.0); HEMOGLOBIN 13.8 g/dL (12.0-18.0); LYMPH # 0.5 K/uL (1.0-4.3); LYMPH % 2.8 % (20.0-40.0); MEAN CELL VOLUME 89.7 fl (80.0-94.0); MEAN CORPUSCULAR HEMOGLOBIN 29.6 pg (27.0-31.0); MEAN PLATELET VOLUME 10.6 fl (7.2-11.7); MONO % 6.2 % (0.0-10.0); NEUT # 14.9 K/uL (1.8-7.0); NEUT % 90.5 % (50.0-75.0); PLATELET COUNT 267 K/uL (130-400); RBC 4.66 Mil/uL (4.40-5.90); RED CELL DISTRIBUTION WIDTH 13.6 % (11.5-14.5); WHITE BLOOD COUNT 16.5 K/uL (4.8-10.8)
--- NOTE | 2018-09-13 12:33 | ED PDOC ---
HPI: Male Pain Time Seen by Provider: 09/13/18 11:34 Chief Complaint (Nursing): Male Genitourinary Chief Complaint (Provider): Cannot urinate History Per: Patient History/Exam Limitations: no limitations Additional Complaint(s): Pt states he has been unable to urinate since yesterday and continues to have back pain. Denies fever, hematuria, abdominal pain. Pt evaluated in this ED yesterday Past Medical History Vital Signs: Last Vital Signs Temp 98.3 F 09/13/18 11:24 Pulse 84 09/13/18 11:24 Resp 17 09/13/18 11:24 BP 171/101 H 09/13/18 11:24 Pulse Ox 99 09/13/18 11:24 - Medical History PMH: Benign Prostatic Hyperplasia, Bronchitis, COPD, HTN, Kidney Stones, Chronic Kidney Disease Denies: HIV - Surgical History Surgical History: Appendectomy, Hernia Repair - Family History Family History: States: Unknown Family Hx - Home Medications Home Medications: Ambulatory Orders Medication Instructions Recorded RX: Naproxen [Naprosyn] 500 mg PO Q12H #20 tab 06/30/18 RX: Tamsulosin [Flomax] 0.4 mg PO DAILY #30 cap 09/08/18 amLODIPine [Norvasc] 5 mg PO DAILY #30 tab 09/08/18 RX: traMADol [Ultram] 50 mg PO Q8 #10 tab 09/12/18 - Allergies Allergies/Adverse Reactions: Allergies Allergy/AdvReac Type Severity Reaction Status Date / Time moxifloxacin [From Avelox] Allergy RASH Verified 09/13/18 11:31 - Laboratory Results Result Diagrams: 09/13/18 12:20 09/13/18 12:20 - ECG O2 Sat by Pulse Oximetry: 99 Pulse Ox Interpretation: Normal - Physician Consult Information Time Consulting Physican Contacted: 12:27 Physician Contacted: Juan Diego Huang Outcome Of Conversation: Recommends discharge home with Mcgee leg bag, Macrobid, can d/c Flomax, make appt for this coming week. Medical Decision Making Medical Decision Makin yo male with ureteral stone and urinary retention. - labs - Mcgee catheter - Zofran Mcgee catheter placed, 1500 cc clear yellow urine in bag. 16:00 Pt seen and examined by Dr. Huang in ED, states elevated WBC and elevated creatinine to be expected with stent and urinary retention, imaging not indicated, recommends discharge home to continue Bactrim as prescribed, will set up appt with [facility] for next week. Disposition - Clinical Impression Clinical Impression: Ureteral stone, Urinary retention, Urinary tract infection, Hydronephrosis with renal calculous obstruction - Disposition Referrals: Juan Diego Huang MD [Medical Doctor] - [employer] [facility] [Outside] Disposition: Routine/Home Disposition Time: 16:41 Condition: STABLE Additional Instructions: CONTINUE BACTRIM PRESCRIBED! Instructions: Urinary Tract Infections in Adults, Hydronephrosis in Adults, Ure teral Stent, Urinary Obstruction, Mcgee Catheter, Male, Urinary Retention Forms: [employer] (Kiswahili)
[2018-09-13 12:38] LABS: INR 1.2; PROTHROMBIN TIME 13.3 Seconds (9.8-13.1)
[2018-09-13 12:41] LABS: PARTIAL THROMBOPLASTIN TIME 31.6 Seconds (25.6-37.1)
[2018-09-13 12:47] LABS: ALB/GLOB RATIO 1.1 (1.0-2.1); ALBUMIN 3.7 g/dL (3.5-5.0); CALCIUM 8.9 mg/dL (8.4-10.2)
[2018-09-13] MEDS ORDERED: cefTRIAXone (Rocephin) 1 gm Inj ONE (13:14)
[2018-09-13 13:19] LABS: URINE BACTERIA RARE (<OCC); URINE BILIRUBIN NEGATIVE (NEGATIVE); URINE BLOOD LARGE (NEGATIVE); URINE CLARITY SLIGHTY-CLOUDY (Clear); URINE COLOR YELLOW (YELLOW); URINE GLUCOSE (UA) NEG (Normal); URINE LEUKOCYTE ESTERASE SMALL Leu/uL (Negative); URINE PROTEIN 30 mg/dL (NEGATIVE); URINE UROBILINOGEN 0.2-1.0 mg/dL (0.2-1.0)
[2018-09-13 13:20] LABS: BANDS 4 % (0-2); BASOPHIL 1 % (0-2); LYMPHOCYTE 4 % (20-50); MONOCYTE 3 % (0-10); NEUTROPHIL 88 % (42-75); TOTAL CELLS COUNTED 100
[2018-09-13 13:21] LABS: PLATELET ESTIMATE NORMAL (NORMAL)
[2018-09-13 13:54] LABS: VENOUS BLOOD GAS BASE EXCESS 2.5 mmol/L (0.0-2.0); VENOUS BLOOD GAS PCO2 45 mmHg (40-60); VENOUS BLOOD GAS PO2 33 mm/Hg (30-55)
--- NOTE | 2018-09-13 14:39 | US ---
Date of service: 09/13/2018 PROCEDURE: Ultrasound of the Kidneys HISTORY: Bilateral flank pain COMPARISON: Correlations made to CT scan of the abdomen pelvis dated 09/12/2018. TECHNIQUE: Sonogram of the kidneys. FINDINGS: RIGHT KIDNEY: Measures: 12.6 x 5.6 x 5.6 cm. Moderate hydronephrosis. Normal in size, contour and echogenicity. No stone or solid mass lesion visualized. LEFT KIDNEY: Measures: 12.0 x 5.0 x 5.0 cm. Mild hydronephrosis. Known double-J ureteral stent not well-visualized. Normal in size, contour and echogenicity. No stone or solid mass lesion visualized. OTHER FINDINGS: Bladder collapsed around a Mcgee catheter. Known left double-J ureteral stent not well-visualized. IMPRESSION: Moderate right and mild left hydronephrosis. No nephrolithiasis visualized. Known left double-J ureteral stent not well seen.
[2018-09-13 16:41] VITALS: O2SAT 99
--- NOTE | 2018-09-13 16:44 | CARD ---
APPROVED REPORT Date of service: 09/13/2018 EKG Measurement Heart [id number] <Conclusion> Normal sinus rhythm Nonspecific T wave abnormality Abnormal ECG
[2018-09-13 18:02] VITALS: BP 136/79; PULSE 89; RESP 20; TEMP 98.9
== END 2018-09-13 18:01 | disposition home or self-care (01) ==
LOC: H.ER 11:21
DX: Z87.442 Personal history of urinary calculi (principal); N39.0 Urinary tract infection, site not specified; N13.2 Hydronephrosis with renal and ureteral calculous obstruction; J44.9 Chronic obstructive pulmonary disease, unspecified; N13.6 Pyonephrosis; N18.9 Chronic kidney disease, unspecified; N40.0 Benign prostatic hyperplasia without lower urinary tract symptoms; I12.9 Hypertensive chronic kidney disease with stage 1 through stage 4 chronic kidney disease, or unspecified chronic kidney disease
CPT/HCPCS: 51702; 71045; 76770; 76857; 80053; 81003; 82803; 85025; 85610; 85730; 86850; 86900; 87040; 87086; 93005; 96360; 99285; J0696

== ENCOUNTER 2018-09-26 17:52 | Emergency (ER) | payer MEDICAID, OTHER ==
[2018-09-26 17:52] VITALS: BMI 26.4
[2018-09-26 17:59] VITALS: PULSE 73
[2018-09-26 18:42] VITALS: BP 150/80; RESP 19; TEMP 97.7; O2SAT 98
--- NOTE | 2018-09-26 18:47 | ED PDOC ---
HPI: Male Pain Time Seen by Provider: 09/26/18 18:18 Chief Complaint (Nursing): Male Genitourinary History Per: Patient History/Exam Limitations: no limitations Current Symptoms Are (Timing): Gone Now Additional Complaint(s): Hx of HTN and kidney stones with lal placement end of August presenting with irritation to glans of penis, states it was burning but not burning now and he was concerned about discoloration and discharge from the lal cathether. No dysuria, fevers, back pain, or other symptoms currently. PMD: Dr. Del Toro Past Medical History Reviewed: Historical Data, Vital Signs Vital Signs: Last Vital Signs Temp 97.7 F 09/26/18 18:41 Pulse 73 09/26/18 18:41 Resp 19 09/26/18 18:41 BP 150/80 09/26/18 18:41 Pulse Ox 98 09/26/18 18:41 - Medical History PMH: Benign Prostatic Hyperplasia, Bronchitis, COPD, HTN, Kidney Stones, Chronic Kidney Disease Denies: HIV - Surgical History Surgical History: Appendectomy, Hernia Repair - Family History Family History: States: Unknown Family Hx - Home Medications Home Medications: Ambulatory Orders Medication Instructions Recorded Naproxen [Naprosyn] 500 mg PO Q12H #20 tab 06/30/18 Tamsulosin [Flomax] 0.4 mg PO DAILY #30 cap 09/08/18 amLODIPine [Norvasc] 5 mg PO DAILY #30 tab 09/08/18 traMADol [Ultram] 50 mg PO Q8 #10 tab 09/12/18 Vitamin A/D [Vitamin A&D] 60 applic TP DAILY #1 tube 09/26/18 - Allergies Allergies/Adverse Reactions: Allergies Allergy/AdvReac Type Severity Reaction Status Date / Time moxifloxacin [From Avelox] Allergy RASH Verified 09/26/18 17:55 Review of Systems ROS Statement: Except As Marked, All Systems Reviewed And Found Negative Physical Exam - Reviewed Nursing Documentation Reviewed: Yes Vital Signs Reviewed: Yes - Physical Exam Appears: Positive for: Well, Non-toxic, No Acute Distress Head Exam: Positive for: ATRAUMATIC, NORMAL INSPECTION, NORMOCEPHALIC Skin: Positive for: Normal Color, Warm, DRY Cardiovascular/Chest: Positive for: Regular Rate, Rhythm Respiratory: Positive for: CNT, Normal Breath Sounds Gastrointestinal/Abdominal: Positive for: Normal Exam, Soft. Negative for: Tenderness Male Genital Exam: Positive for: other (Lal cath in place, no discharge, glans of penis with mild irritation, no discharge, poor hygeine in general pelvic area, no rash to skin) - ECG O2 Sat by Pulse Oximetry: 98 Pulse Ox Interpretation: Normal Medical Decision Making Medical Decision Making: Patient complaining of discomfort of glans of penis --irritation seems related to poor hygiene --encouraged proper cleaning with foreskin retracted daily --A&D --advised to followup with urology Disposition - Clinical Impression Clinical Impression: Penile irritation - Disposition Referrals: Gonzales Del Toro MD [Staff Provider] - Disposition: Routine/Home Disposition Time: 18:48 Condition: GOOD Prescriptions: Vitamin A/D [Vitamin A&D] 60 applic TP DAILY #1 tube Instructions: Skin Rash Forms: [employer] (Uruguayan)
== END 2018-09-26 19:03 | disposition home or self-care (01) ==
LOC: H.ER 17:52
DX: N48.89 Other specified disorders of penis (principal)

== ENCOUNTER 2018-09-29 20:04 | Emergency (ER) | payer OTHER ==
[2018-09-29 20:05] VITALS: BMI 26.4
--- NOTE | 2018-09-30 00:28 | ED PDOC ---
HPI: General Adult Time Seen by Provider: 09/29/18 23:40 Chief Complaint (Nursing): Male Genitourinary Chief Complaint (Provider): lal bag leaking History Per: Patient History/Exam Limitations: no limitations Onset/Duration Of Symptoms: Days (1) Current Symptoms Are (Timing): Still Present Additional Complaint(s): 63 y/o male presents for evaluation of leaking from lal leg bag x 1 day. Patient states he had lal placed 09/08/18 after procedure for obstructing kidney stone; has appointment tomorrow with Dr. Huang. Denies fever, nausea/vomiting, abdominal pain, back pain, hematuria. Past Medical History Reviewed: Historical Data, Nursing Documentation, Vital Signs Vital Signs: Last Vital Signs Temp 98.1 F 09/29/18 20: Pulse 77 09/29/18 20:19 Resp 18 09/29/18 20:19 BP Pulse Ox 99 09/29/18 20:19 - Medical History PMH: Benign Prostatic Hyperplasia, Bronchitis, COPD, HTN, Kidney Stones, Chronic Kidney Disease Denies: HIV - Surgical History Surgical History: Appendectomy, Hernia Repair - Family History Family History: States: Unknown Family Hx - Home Medications Home Medications: Ambulatory Orders Medication Instructions Recorded Naproxen [Naprosyn] 500 mg PO Q12H #20 tab 06/30/18 Tamsulosin [Flomax] 0.4 mg PO DAILY #30 cap 09/08/18 amLODIPine [Norvasc] 5 mg PO DAILY #30 tab 09/08/18 traMADol [Ultram] 50 mg PO Q8 #10 tab 09/12/18 Vitamin A/D [Vitamin A&D] 60 applic TP DAILY #1 tube 09/26/18 - Allergies Allergies/Adverse Reactions: Allergies Allergy/AdvReac Type Severity Reaction Status Date / Time moxifloxacin [From Avelox] Allergy RASH Verified 09/29/18 20:19 Review of Systems ROS Statement: Except As Marked, All Systems Reviewed And Found Negative Physical Exam - Reviewed Nursing Documentation Reviewed: Yes Vital Signs Reviewed: Yes - Physical Exam Appears: Positive for: Well, Non-toxic, No Acute Distress Head Exam: Positive for: ATRAUMATIC, NORMAL INSPECTION, NORMOCEPHALIC Skin: Positive for: Normal Color Eye Exam: Positive for: Normal appearance ENT: Positive for: Normal ENT Inspection Cardiovascular/Chest: Positive for: Regular Rate, Rhythm Respiratory: Positive for: Normal Breath Sounds Gastrointestinal/Abdominal: Positive for: Normal Exam Back: Positive for: Normal Inspection Extremity: Positive for: Normal ROM, Other (lal leg bag filled with clear urine, no blood noted. Small leak noted bottom corner) Neurologic/Psych: Positive for: Alert, Oriented (x3) - ECG O2 Sat by Pulse Oximetry: 99 - Progress ED Course And Treament: Leg bag changed +clear urine produced Patient given leg bag instructions Advised to follow up with Dr. Huang tomorrow without fail Return precautions given Disposition - Clinical Impression Clinical Impression: Problem with Lal catheter - Patient ED Disposition Is Patient to be Admitted: No Counseled Patient/Family Regarding: Diagnosis, Need For Followup - Disposition Disposition: Routine/Home Disposition Time: 00:55 Condition: IMPROVED Instructions: How to Care for Your Lal Catheter, Male
[2018-09-30 07:30] VITALS: BP 160/63; PULSE 86; RESP 16; TEMP 98; O2SAT 98
== END 2018-09-30 06:30 | disposition home or self-care (01) ==
LOC: H.ER 20:04
DX: T83.098A Other mechanical complication of other urinary catheter, initial encounter (principal)

== ENCOUNTER 2018-12-30 10:53 | Inpatient (IN) | payer MEDICAID, OTHER ==
[2018-12-30] MEDS ORDERED: Lactated Ringer's 1,000 ML IV ONE ×2 (12:12→18:15)
[2018-12-30] MEDS ORDERED: Propofol 10 mg/ml Inj (20 ML) ONE (13:23)
[2018-12-30] MEDS ORDERED: Midazolam 2 MG/2 ML VIAL ONE (13:25)
[2018-12-30] MEDS ORDERED: Gentamicin 80mg/50ml NS 80 MG/50 ML BAG IVPB ONE (13:52)
[2018-12-30] MEDS ORDERED: Gentamicin 80 mg/2mL Inj. IVPB ONE ×2 (14:00)
[2018-12-30] MEDS ORDERED: Iohexol 240 200 ML ONE (14:28)
[2018-12-30] MEDS ORDERED: Dexamethasone 4 mg/1 ml ONE (14:46)
[2018-12-30] MEDS ORDERED: HYDROmorphone 0.5 mg/0.5 ml ISec IVP PRN (15:10)
[2018-12-30] MEDS ORDERED: Dexamethasone 4 mg/1 ml IVP PRN (15:10)
[2018-12-31] MEDS ORDERED: Influenza Vaccine 60 mcg/0.5 mL SYR (4YR UP) IM ONE (07:30)
[2018-12-31] MEDS ORDERED: Influenza Vaccine (5 YR UP)/PF 60 MCG/0.5 ML SYR IM ONE (09:00)
[2018-12-31] MEDS ORDERED: Succinylcholine 200 mg/10 ml Inj IV ONE (10:31)
[2018-12-31] MEDS ORDERED: Lidocaine 4% (Laryng-O-Jet) Kit MM ONE (10:31)
[2018-12-31] MEDS ORDERED: Rocuronium 10 mg/ml (5 ml) ONE (10:31)
[2018-12-31] MEDS ORDERED: Propofol 10 mg/ml Inj (20 ML) ONE (10:31)
[2018-12-31] MEDS ORDERED: ePHEDrine 50 mg/ml Inj ONE (11:10)
[2018-12-31] MEDS ORDERED: Midazolam 2 MG/2 ML VIAL ONE (11:10)
[2018-12-31] MEDS ORDERED: Lactated Ringer's 1,000 ML IV ONE (11:34)
[2018-12-31] MEDS ORDERED: Gentamicin 80mg/50ml NS 80 MG/50 ML BAG IVPB ONE (11:36)
[2018-12-31] MEDS ORDERED: Gentamicin 80 mg/2mL Inj. IVPB ONE (11:48)
[2018-12-31] MEDS ORDERED: Dexamethasone 4 mg/1 ml ONE (12:25)
--- NOTE | 2018-12-31 12:57 | RAD ---
PROCEDURE: HISTORY: As above COMPARISON: None TECHNIQUE: Total fluoroscopic time utilized during the procedure: 17.4 seconds ; 2.55 mGy FINDINGS: Submitted images from the current procedure: 5 Please refer to the physician's notes performing the procedure. IMPRESSION: Less than 1 hour fluoroscopic time utilized during performance of the procedure
[2018-12-31] MEDS ORDERED: HYDROmorphone 0.5 mg/0.5 ml ISec IVP PRN (12:58)
[2018-12-31] MEDS: Lactated Ringer's 1,000 ML IV SCH ×2 (14:43→21:18)
[2019-01-01] MEDS: Lactated Ringer's 1,000 ML IV SCH ×2 (05:00→17:45)
[2019-01-01 06:32] LABS: HEMOGLOBIN 12.3 g/dL (12.0-18.0); MEAN CELL VOLUME 89.8 fl (80.0-94.0); MEAN CORPUSCULAR HEMOGLOBIN 29.3 pg (27.0-31.0); MEAN CORPUSCULAR HGB CONC 32.6 g/dL (33.0-37.0); RBC 4.21 Mil/uL (4.40-5.90); RED CELL DISTRIBUTION WIDTH 14.8 % (11.5-14.5); WHITE BLOOD COUNT 15.1 K/uL (4.8-10.8)
--- NOTE | 2019-01-01 06:34 | OP ---
PROCEDURE DATE: 12/31/2018 SURGEON: Juan Diego Huang MD ANESTHESIOLOGIST: Radha Kenney MD ANESTHESIA: General PROCEDURE: Cystoscopy uretheroscopy stone extraction, stent removal. DESCRIPTION OF PROCEDURE: The patient was brought to the OR for a cystourethroscopy for removal of the left ureteral calculus. The patient was prepped and draped in the usual manner after general anesthesia given. A cystoscope was inserted. Previous stent insertion was removed. A 0.035 wire was then inserted into the left kidney using a long ureteroscope. The ureteroscope was inserted through the left orifice up into the proximal ureter whereupon the calculus was noted. Using a basket or prong, the calculus was engaged and removed from the ureter and brought through the penis. The calculus was then sent to the lab. The patient tolerated the procedure well and left the OR in good condition. Juan Diego Huang MD MTDD
[2019-01-01 06:54] LABS: BLOOD UREA NITROGEN 16 mg/dl (9-20); CALCIUM 8.4 mg/dL (8.4-10.2); GFR NON-AFRICAN AMERICAN > 60
[2019-01-01 10:21] VITALS: RESP 20; O2SAT 98
[2019-01-01 17:46] VITALS: BP 122/70; PULSE 80; TEMP 98.2
--- NOTE | 2019-01-12 08:57 | OP ---
PROCEDURE DATE: 12/31/2018 SURGEON: Juan Diego Huang MD ANESTHESIOLOGIST: Radha Kenney MD ANESTHESIA: General PROCEDURE: Transuretheral resection prostate DESCRIPTION OF PROCEDURE: The patient was brought to the OR. The patient had urinary retention, done multiple attempts for the patient to urinate. The patient was prepped and draped in the usual manner after general anesthesia given. Resectoscope was then introduced through the penis into the bladder. There was urine in the lateral lobes of the prostate with areas of the apex noted. Using the resectoscope, verify rep resection was started at the bladder neck. Resection was brought down to the capsule throughout. Areas of the apex were inflamed and appeared to be obstruction. The resection of the apices were done. All chips that were resected were sent to the lab. A #20 three_way Mcgee was then inserted with good return. The patient tolerated the procedure well, left the OR in good condition. Juan Diego Huang MD MTDHoracio
--- NOTE | 2019-01-26 13:07 | CP.PCM.PCO ---
Physician Query: Please clarify if you agree with pathologist documentation of prostatic adenocarcinoma or whether diagnosis unable to be further specified. Clinical Indicators: Pathology report documented "prostatic adenocarcinoma." Provider Response: Yes, I agree with the pathologist documentation of prostatic adenocarcinoma MTDD
== END 2019-01-01 18:00 | disposition home or self-care (01) | DRG 482 ==
LOC: H.OPSURG 10:53 → H.MEDSURG1 19:31 → H.OPSURG 19:54
PROVIDERS: ADMIT Urology; ATTEND Urology
PROC: 0TP98DZ Removal of Intraluminal Device from Ureter, Via Natural or Artificial Opening Endoscopic (ICD-10-PCS; 2018-12-31)
PROC: 0VT08ZZ Resection of Prostate, Via Natural or Artificial Opening Endoscopic (ICD-10-PCS; 2018-12-31)
PROC: 0TC78ZZ Extirpation of Matter from Left Ureter, Via Natural or Artificial Opening Endoscopic (ICD-10-PCS; principal; 2018-12-31 11:30)
DX: C61 Malignant neoplasm of prostate (principal); N20.1 Calculus of ureter; R33.9 Retention of urine, unspecified

== ENCOUNTER 2019-04-02 22:26 | Observation (INO) | payer MEDICAID, OTHER, SELFPAY ==
[2019-04-02] MEDS ORDERED: Naproxen 500 MG TAB PO STA (23:14)
[2019-04-02] MEDS ORDERED: Naproxen 500 MG TAB PO ONE ×2 (23:40→23:43)
[2019-04-03 01:16] LABS: BASO # 0.1 K/uL (0.0-0.2); EOS # 0.4 K/uL (0.0-0.7); EOS % 4.4 % (0.0-4.0); HEMOGLOBIN 13.4 g/dL (12.0-18.0); LYMPH % 21.2 % (20.0-40.0); MEAN CELL VOLUME 90.4 fl (80.0-94.0); MEAN CORPUSCULAR HEMOGLOBIN 29.6 pg (27.0-31.0); MEAN CORPUSCULAR HGB CONC 32.8 g/dL (33.0-37.0); MONO # 0.8 K/uL (0.0-0.8); MONO % 8.3 % (0.0-10.0); NEUT # 6.1 K/uL (1.8-7.0); NEUT % 65.1 % (50.0-75.0); RBC 4.54 Mil/uL (4.40-5.90); RED CELL DISTRIBUTION WIDTH 15.5 % (11.5-14.5); WHITE BLOOD COUNT 9.4 K/uL (4.8-10.8)
[2019-04-03 01:22] LABS: ALB/GLOB RATIO 1.4 (1.0-2.1); ALBUMIN 3.8 g/dL (3.5-5.0); ALT/SGPT 28 U/L (21-72); AST/SGOT 22 U/L (17-59); BLOOD UREA NITROGEN 18 mg/dl (9-20); CALCIUM 8.6 mg/dL (8.4-10.2); GFR NON-AFRICAN AMERICAN > 60
--- NOTE | 2019-04-03 04:32 | CP.PCM.HP ---
<Griselda Yin - Last Filed: 04/03/19 06:09> History of Present Illness - History of Present Illness History of Present Illness: CC: back pain, chest pain HPI: 64 YO Male with PMHx of HTN, renal stones, BPH and chronic low back pain presents to ER for low back pain and chest pain. Back pain started earlier today and presented worse then usual which brought him to the ER. No associated radiation of the pain, no associated weakness, numbness or tingling. Additionally, on further inquiry patient states that he had dull chest pain today while he was sitting down, pain was located in the L side of his chest, no radiation of the pain, and lasted a couple of hrs. He has had chest pain in the past but usually in the R side or on both sides of the chest. Pain did not stop him from doing any activity and did not take any PO meds for pain. Denies associated dyspnea, palpitations, diaphoresis. PMhx: BPH, HTN, emphysema Surghx: appendectomy, hernia repair SHx: 1 ppd x 20 yrs, denies alcohol use, denies other drug use. Works as a bulk tank driver FHx: mother with angina, and breast CA Meds: enalapril 20 mg daily Allergies: moxifloxacin Present on Admission - Present on Admission Any Indicators Present on Admission: No Review of Systems - Constitutional Constitutional: absent: Chills, Fever - Cardiovascular Cardiovascular: Chest Pain. absent: Diaphoresis, Dyspnea, Lightheadedness, Palpitations, Radiating Pain - Respiratory Respiratory: absent: Cough, Dyspnea - Gastrointestinal Gastrointestinal: absent: Abdominal Pain - Musculoskeletal Musculoskeletal: Back Pain Past Patient History - Past Medical History & Family History Past Medical History?: Yes - Past Social History Smoking Status: Heavy Smoker > 10 Cigarettes Daily Alcohol: None Drugs: Denies - CARDIAC Hx Cardiac Disorders: Yes Hx Hypertension: Yes - PULMONARY Hx Respiratory Disorders: Yes Hx Bronchitis: Yes Hx Chronic Obstructive Pulmonary Disease (COPD): Yes - NEUROLOGICAL Hx Neurological Disorder: No - HEENT Hx HEENT Problems: No - RENAL Hx Chronic Kidney Disease: Yes Hx Kidney Stones: Yes - ENDOCRINE/METABOLIC Hx Endocrine Disorders: No - HEMATOLOGICAL/ONCOLOGICAL Hx Blood Disorders: No Hx AIDS: No Hx Human Immunodeficiency Virus (HIV): No - INTEGUMENTARY Hx Dermatological Problems: No - MUSCULOSKELETAL/RHEUMATOLOGICAL Hx Musculoskeletal Disorders: No Hx Falls: No - GASTROINTESTINAL Hx Gastrointestinal Disorders: No Hx Gastroesophageal Reflux: Yes - GENITOURINARY/GYNECOLOGICAL Hx Genitourinary Disorders: Yes Hx Prostate Problems: Yes - PSYCHIATRIC Hx Emotional Abuse: No Hx Physical Abuse: No - SURGICAL HISTORY Hx Surgeries: Yes Hx Appendectomy: Yes Hx Herniorrhaphy: Yes (right inguinal) - ANESTHESIA Hx Anesthesia: Yes Hx Anesthesia Reactions: No Hx Malignant Hyperthermia: No Meds Allergies/Adverse Reactions: Allergies Allergy/AdvReac Type Severity Reaction Status Date / Time moxifloxacin [From Avelox] Allergy RASH Verified 04/02/19 22:28 Physical Exam - Constitutional Appears: No Acute Distress, Other (sleeping ) - Head Exam Head Exam: NORMAL INSPECTION - Eye Exam Eye Exam: EOMI, Normal appearance - ENT Exam ENT Exam: Mucous Membranes Moist - Respiratory Exam Respiratory Exam: Clear to Auscultation Bilateral, NORMAL BREATHING PATTERN. absent: Chest Wall Tenderness, Wheezes - Cardiovascular Exam Cardiovascular Exam: REGULAR RHYTHM, +S1, +S2 - GI/Abdominal Exam GI & Abdominal Exam: Normal Bowel Sounds, Soft. absent: Tenderness - Extremities Exam Extremities exam: Positive for: normal inspection. Negative for: pedal edema - Neurological Exam Neurological exam: Alert, Oriented x3 - Skin Skin Exam: Dry, Intact, Normal Color Results - Vital Signs Recent Vital Signs: Last Vital Signs Temp 98.6 F 04/02/19 22:30 Pulse 54 L 04/03/19 01:44 Resp 16 04/03/19 01:44 BP 127/85 04/03/19 01:44 Pulse Ox 99 04/03/19 01:44 - Labs Result Diagrams: 04/03/19 01:11 04/03/19 01:11 Labs: Laboratory Results - last 24 hr 04/03/19 04/03/19 01:11 01:11 WBC 9.4 RBC 4.54 Hgb 13.4 Hct 41.0 MCV 90.4 MCH 29.6 MCHC 32.8 L RDW 15.5 H Plt Count 154 MPV 11.0 Neut % (Auto) 65.1 Lymph % (Auto) 21.2 [place] % (Auto) 8.3 Eos % (Auto) 4.4 H Baso % (Auto) 1.0 Neut # (Auto) 6.1 Lymph # (Auto) 2.0 [place] # (Auto) 0.8 Eos # (Auto) 0.4 Baso # (Auto) 0.1 Sodium 137 Potassium 3.6 Chloride 106 Carbon Dioxide 23 Anion Gap 12 BUN 18 Creatinine 0.9 Est GFR ( Amer) > 60 Est GFR (Non-Af Amer) > 60 Random Glucose 126 H Calcium 8.6 Total Bilirubin 0.2 AST 22 ALT 28 Alkaline Phosphatase 72 Troponin I < 0.0120 Total Protein 6.5 Albumin 3.8 Globulin 2.7 Albumin/Globulin Ratio 1.4 Assessment & Plan - Assessment and Plan (Free Text) Assessment: Assessment/Plan: 64 YO Male with PMHx of HTN, renal stones, BPH and chronic low back pain is admitted for chest pain and low back pain. Chest pain -acute, episodic -EKG with t wave changes in the lateral leads -trop x 1 neg -follow up trops -cardiology consulted; follow up recs -echo ordered -asa stat -start OMEGA/BB -follow up lab to start statin -repeat EKG in AM Low back pain -acute on chronic -start lidoderm patches -PO pain meds as needed -follow up XR of the back official read HTN -chronic, controlled -initially elevated, likely due to pain -c/w home meds and monitor DVT prolx -Lovenox SC <Koby Zamora - Last Filed: 04/03/19 10:14> Results - Vital Signs Recent Vital Signs: Last Vital Signs Temp 97.5 F L 04/03/19 06:54 Pulse 61 04/03/19 09:02 Resp 15 04/03/19 07:58 BP 120/61 04/03/19 09:02 Pulse Ox 97 04/03/19 07:58 - Labs Result Diagrams: 04/03/19 01:11 04/03/19 01:11 Labs: Laboratory Results - last 24 hr 04/03/19 04/03/19 04/03/19 01:11 01:11 07:25 WBC 9.4 RBC 4.54 Hgb 13.4 Hct 41.0 MCV 90.4 MCH 29.6 MCHC 32.8 L RDW 15.5 H Plt Count 154 MPV 11.0 Neut % (Auto) 65.1 Lymph % (Auto) 21.2 [place] % (Auto) 8.3 Eos % (Auto) 4.4 H Baso % (Auto) 1.0 Neut # (Auto) 6.1 Lymph # (Auto) 2.0 [place] # (Auto) 0.8 Eos # (Auto) 0.4 Baso # (Auto) 0.1 Sodium 137 Potassium 3.6 Chloride 106 Carbon Dioxide 23 Anion Gap 12 BUN 18 Creatinine 0.9 Est GFR ( Amer) > 60 Est GFR (Non-Af Amer) > 60 Random Glucose 126 H Calcium 8.6 Total Bilirubin 0.2 AST 22 ALT 28 Alkaline Phosphatase 72 Troponin I < 0.0120 < 0.0120 Total Protein 6.5 Albumin 3.8 Globulin 2.7 Albumin/Globulin Ratio 1.4 Triglycerides Cholesterol LDL Cholesterol Direct HDL Cholesterol TSH 3rd Generation 04/03/19 07:25 WBC RBC Hgb Hct MCV MCH MCHC RDW Plt Count MPV Neut % (Auto) Lymph % (Auto) [place] % (Auto) Eos % (Auto) Baso % (Auto) Neut # (Auto) Lymph # (Auto) [place] # (Auto) Eos # (Auto) Baso # (Auto) Sodium Potassium Chloride Carbon Dioxide Anion Gap BUN Creatinine Est GFR ( Amer) Est GFR (Non-Af Amer) Random Glucose Calcium Total Bilirubin AST ALT Alkaline Phosphatase Troponin I Total Protein Albumin Globulin Albumin/Globulin Ratio Triglycerides 64 D Cholesterol 134 LDL Cholesterol Direct 86 HDL Cholesterol 39 TSH 3rd Generation 1.89 Attending/Attestation - Attestation I have personally seen and examined this patient.: Yes I have fully participated in the care of the patient.: Yes I have reviewed all pertinent clinical information: Yes Notes (Text): 04/03/19 10:09 I saw, examined and discussed this patient with Dr Yin. I agree with the assessment and plan outlined. This is a 64 years old male with hx of Back pain, Emphysema, BPH and HTN who came to the ED with Back pain but also referred left chest pain, non radiating with an anormal EKG showing T wave inversion in leads I, aVl, V2-6. We will treat Chest Pain and r/o ACS. Follow Serial EKG, Troponin, ECHO for wall motion, consult Dr Maldonado the computer repair technician. Koby Zamora MD
--- NOTE | 2019-04-03 05:08 | ED PDOC ---
HPI: Back Time Seen by Provider: 04/02/19 22:58 Chief Complaint (Nursing): Back Pain Chief Complaint (Provider): low back pain, right sided and chest pain History Per: Patient History/Exam Limitations: no limitations Onset/Duration Of Symptoms: Hrs Current Symptoms Are (Timing): Better Quality Of Discomfort: Dull Additional Complaint(s): 64 yo male with HTN, BPH, kidney stones and back pain since december presents for evaluation of lower back pain and chest pain. Pt states he had dull, non- radating left sided chest pain earlier today which seemed to resolve with his BP medication. PT also reports lower back pain which is worse than normal. PT states he has not take anything for pain and does not want for pain. PT denies SOB, numbness/tingling. PT states that he has never had chest pain in the past. Past Medical History Reviewed: Historical Data, Nursing Documentation, Vital Signs Vital Signs: Last Vital Signs Temp 98.6 F 04/02/19 22:30 Pulse 54 L 04/03/19 01:44 Resp 16 04/03/19 01:44 BP 127/85 04/03/19 01:44 Pulse Ox 99 04/03/19 01:44 Primary Care Provider: FAMILY PROVIDER,NO - Medical History PMH: Benign Prostatic Hyperplasia, Bronchitis, COPD, HTN, Kidney Stones, Chronic Kidney Disease Denies: HIV - Surgical History Surgical History: Appendectomy, Hernia Repair - Family History Family History: States: Unknown Family Hx - Living Arrangements Living Arrangements: With Family - Social History Current smoker - smoking cessation education provided: No Alcohol: None Drugs: Denies - Home Medications Home Medications: Ambulatory Orders Medication Instructions Recorded amLODIPine [Norvasc] 5 mg PO DAILY #30 tab 09/08/18 - Allergies Allergies/Adverse Reactions: Allergies Allergy/AdvReac Type Severity Reaction Status Date / Time moxifloxacin [From Avelox] Allergy RASH Verified 04/02/19 22:28 Review of Systems ROS Statement: Except As Marked, All Systems Reviewed And Found Negative Constitutional: Negative for: Fever, Chills Cardiovascular: Positive for: Chest Pain. Negative for: Palpitations Respiratory: Negative for: Cough, Shortness of Breath Gastrointestinal: Negative for: Nausea, Vomiting Physical Exam - Reviewed Nursing Documentation Reviewed: Yes Vital Signs Reviewed: Yes - Physical Exam Appears: Positive for: Well, Non-toxic, No Acute Distress Head Exam: Positive for: ATRAUMATIC, NORMAL INSPECTION, NORMOCEPHALIC Skin: Positive for: Normal Color, Warm, DRY Eye Exam: Positive for: Normal appearance ENT: Positive for: Normal ENT Inspection Neck: Positive for: Normal, Painless ROM Cardiovascular/Chest: Positive for: Regular Rate, Rhythm Respiratory: Positive for: Normal Breath Sounds. Negative for: Accessory Muscle Use, Respiratory Distress Gastrointestinal/Abdominal: Positive for: Normal Exam, Soft. Negative for: Tenderness Back: Positive for: Normal Inspection, Vertebral Tenderness Extremity: Positive for: Normal ROM Neurological/Psych: Positive for: Awake, Alert, Normal Tone - Laboratory Results Result Diagrams: 04/03/19 01:11 04/03/19 01:11 Lab Results: Troponin I < 0.0120 ng/mL (0.00-0.120) 04/03/19 01:11 Total Bilirubin 0.2 mg/dl (0.2-1.3) 04/03/19 01:11 AST 22 U/L (17-59) 04/03/19 01:11 ALT 28 U/L (21-72) 04/03/19 01:11 Alkaline Phosphatase 72 U/L (38-126) 04/03/19 01:11 Total Protein 6.5 G/DL (6.3-8.2) 04/03/19 01:11 Albumin 3.8 g/dL (3.5-5.0) 04/03/19 01:11 Globulin 2.7 gm/dL (2.2-3.9) 04/03/19 01:11 Albumin/Globulin Ratio 1.4 (1.0-2.1) 04/03/19 01:11 - ECG O2 Sat by Pulse Oximetry: 99 Pulse Ox Interpretation: Normal Medical Decision Making Medical Decision Making: Inverted T waves in V2 and V3 Admission for chest pain and low back pain Disposition - Clinical Impression Clinical Impression: Chest pain, Back pain - Patient ED Disposition Is Patient to be Admitted: Yes Counseled Patient/Family Regarding: Diagnosis, Need For Followup - Disposition Disposition Time: 03:11 Condition: STABLE
[2019-04-03 07:18] VITALS: BMI 25.0
[2019-04-03] MEDS ORDERED: Lidocaine 5% Patch TD SCH (09:00)
[2019-04-03] MEDS ORDERED: Enoxaparin 40 mg Syringe SC SCH (09:00)
--- NOTE | 2019-04-03 09:21 | CP.PCM.CON ---
History of Present Illness - History of Present Illness History of Present Illness: 4-year-old hypertensive man with a prostatic malignancy and severe back pain came into the hospital reporting severe back pain and also mentioned having experienced a left pectoral ache almost 2 days before. He reports this discomfort was aggravated by body movements. He denies any chest pain connected with physical activity. There has never been a myocardial infarction or symptoms of congestive cardiac failure. He also reports that he has not taken his antihypertensive medications or pain medications for his back for a few days. He is not a diabetic or a smoker. Physical examination shows a middle-aged man who is reluctant to talk. He was able to lie virtually flat and carry on a conversation. His jugular venous pressure was not elevated and there was no edema over his lower extremity. His heart rate was 68 bpm regular. His blood pressure was 146/74 mmHg. His extremities were warm and his nailbeds were pink. There was no central or peripheral cyanosis. There was no tenderness in the left pectoral area. The first and second heart sounds were normal. There was no murmur or gallop. There were no rales. His abdomen was soft and liver and spleen were not palpable. His electrocardiogram showed sinus rhythm with T wave inversions in anterior chest leads as well as leads I and aVL. 2 sets of troponin were negative for any evidence of myocyte injury. The rest of his labs were noted. His lipid profile was noted. Impression: Atypical chest pain in a patient with prostatic malignancy and chronic low back pain. Hypertension. No evidence of acute coronary syndrome. The patient is stable from cardiovascular point of view and may be allowed to return home to be worked up as an outpatient to rule out evidence of coronary artery disease. Past Patient History - Past Medical History & Family History Past Medical History?: Yes - Past Social History Smoking Status: Heavy Smoker > 10 Cigarettes Daily Alcohol: None Drugs: Denies - CARDIAC Hx Cardiac Disorders: Yes Hx Hypertension: Yes - PULMONARY Hx Respiratory Disorders: Yes Hx Chronic Obstructive Pulmonary Disease (COPD): Yes - NEUROLOGICAL Hx Neurological Disorder: No - HEENT Hx HEENT Problems: No - RENAL Hx Chronic Kidney Disease: Yes Hx Kidney Stones: Yes - ENDOCRINE/METABOLIC Hx Endocrine Disorders: No - HEMATOLOGICAL/ONCOLOGICAL Hx Blood Disorders: No - INTEGUMENTARY Hx Dermatological Problems: No - MUSCULOSKELETAL/RHEUMATOLOGICAL Hx Musculoskeletal Disorders: No - GASTROINTESTINAL Hx Gastrointestinal Disorders: No Hx Gastroesophageal Reflux: Yes - GENITOURINARY/GYNECOLOGICAL Hx Genitourinary Disorders: Yes - PSYCHIATRIC Hx Psychophysiologic Disorder: No Hx Emotional Abuse: No Hx Physical Abuse: No - SURGICAL HISTORY Hx Surgeries: Yes Hx Appendectomy: Yes Hx Herniorrhaphy: Yes (right inguinal) - ANESTHESIA Hx Anesthesia: Yes Hx Anesthesia Reactions: No Hx Malignant Hyperthermia: No Meds Allergies/Adverse Reactions: Allergies Allergy/AdvReac Type Severity Reaction Status Date / Time moxifloxacin [From Avelox] Allergy RASH Verified 04/02/19 22:28 - Medications Medications: Current Medications Acetaminophen (Tylenol 325mg Tab) 650 mg PO Q6 PRN PRN Reason: Fever >100.4 F Acetaminophen (Tylenol 325mg Tab) 650 mg PO Q6 PRN PRN Reason: Pain, Mild (1-3) Amlodipine Besylate (Norvasc) 5 mg PO DAILY [facility] Last Admin: 04/03/19 09:02 Dose: 5 mg Aspirin (Aspirin Chewable) 81 mg PO DAILY [facility] Atorvastatin Calcium (Lipitor) 20 mg PO DAILY [facility] Last Admin: 04/03/19 09:03 Dose: 20 mg Carvedilol (Coreg) 6.25 mg PO Q12 [facility] Last Admin: 04/03/19 09:01 Dose: 6.25 mg Enoxaparin Sodium (Lovenox) 40 mg SC DAILY [facility]; Protocol Last Admin: 04/03/19 09:00 Dose: 40 mg Lidocaine (Lidoderm) 1 ea TD DAILY [facility] Last Admin: 04/03/19 09:02 Dose: 1 ea Lisinopril (Zestril) 5 mg PO DAILY [facility] Last Admin: 04/03/19 09:02 Dose: 5 mg Results - Vital Signs Recent Vital Signs: Last Vital Signs Temp 97.5 F L 04/03/19 06:54 Pulse 61 04/03/19 09:02 Resp 15 04/03/19 07:58 BP 120/61 04/03/19 09:02 Pulse Ox 97 04/03/19 07:58 - Labs Result Diagrams: 04/03/19 01:11 04/03/19 01:11 Labs: Laboratory Results - last 24 hr 04/03/19 04/03/19 04/03/19 01:11 01:11 07:25 WBC 9.4 RBC 4.54 Hgb 13.4 Hct 41.0 MCV 90.4 MCH 29.6 MCHC 32.8 L RDW 15.5 H Plt Count 154 MPV 11.0 Neut % (Auto) 65.1 Lymph % (Auto) 21.2 [place] % (Auto) 8.3 Eos % (Auto) 4.4 H Baso % (Auto) 1.0 Neut # (Auto) 6.1 Lymph # (Auto) 2.0 [place] # (Auto) 0.8 Eos # (Auto) 0.4 Baso # (Auto) 0.1 Sodium 137 Potassium 3.6 Chloride 106 Carbon Dioxide 23 Anion Gap 12 BUN 18 Creatinine 0.9 Est GFR ( Amer) > 60 Est GFR (Non-Af Amer) > 60 Random Glucose 126 H Calcium 8.6 Total Bilirubin 0.2 AST 22 ALT 28 Alkaline Phosphatase 72 Troponin I < 0.0120 < 0.0120 Total Protein 6.5 Albumin 3.8 Globulin 2.7 Albumin/Globulin Ratio 1.4 Triglycerides Cholesterol LDL Cholesterol Direct HDL Cholesterol TSH 3rd Generation 04/03/19 07:25 WBC RBC Hgb Hct MCV MCH MCHC RDW Plt Count MPV Neut % (Auto) Lymph % (Auto) [place] % (Auto) Eos % (Auto) Baso % (Auto) Neut # (Auto) Lymph # (Auto) [place] # (Auto) Eos # (Auto) Baso # (Auto) Sodium Potassium Chloride Carbon Dioxide Anion Gap BUN Creatinine Est GFR ( Amer) Est GFR (Non-Af Amer) Random Glucose Calcium Total Bilirubin AST ALT Alkaline Phosphatase Troponin I Total Protein Albumin Globulin Albumin/Globulin Ratio Triglycerides 64 D Cholesterol 134 LDL Cholesterol Direct 86 HDL Cholesterol 39 TSH 3rd Generation 1.89
--- NOTE | 2019-04-03 10:46 | CARD ---
APPROVED REPORT Date of service: 04/03/2019 EKG Measurement Heart [id number] <Conclusion> Sinus bradycardia ST & T wave abnormality, consider anterolateral ischemia Abnormal ECG
[2019-04-03 10:51] VITALS: O2SAT 98
--- NOTE | 2019-04-03 10:51 | CARD ---
APPROVED REPORT Date of service: 04/03/2019 EKG Measurement Heart [id number] <Conclusion> Sinus bradycardia with sinus arrhythmia Left axis deviation ST & T wave abnormality, consider anterolateral ischemia Abnormal ECG
--- NOTE | 2019-04-03 11:35 | RAD ---
Date of service: 04/02/2019 PROCEDURE: Radiographs of the Lumbar Spine. HISTORY: Low back pain. No history of COMPARISON: No prior. TECHNIQUE: 5 views obtained. FINDINGS: BONES: Scoliosis, secondary degenerative change at multiple levels. DISC SPACES: Multilevel disc space narrowing, non marginal osteophyte formation. OTHER FINDINGS: None. IMPRESSION: No acute findings related to/ accounting for the clinical presentation.
--- NOTE | 2019-04-03 11:46 | RAD ---
Date of service: 04/03/2019 HISTORY: chest pain COMPARISON: 10/27/2018. TECHNIQUE: Chest PA and lateral views FINDINGS: LUNGS: No active pulmonary disease. PLEURA: No significant pleural effusion identified. No pneumothorax apparent. CARDIOVASCULAR: No aortic atherosclerotic calcification present. Normal cardiac size. No pulmonary vascular congestion. OSSEOUS STRUCTURES: No significant abnormalities. VISUALIZED UPPER ABDOMEN: Normal. OTHER FINDINGS: None. IMPRESSION: No active disease. No significant interval change compared to the prior examination(s).
--- NOTE | 2019-04-03 12:10 | CP.PCM.DIS ---
<Leandro Mahoney - Last Filed: 04/03/19 12:24> Provider - Provider Date of Admission: 04/03/19 04:34 Attending physician: Koby Zamora Consults: 04/03/19 07:00 Cardiology Consult Routine Comment: Consulting Provider: Tate Maldonado V Consulting Physician: Tate Maldonado V Reason for Consult: chest pain with EKG change 04/03/19 10:48 Social Work Referral Routine Comment: lives along Physician Instructions: Reason For Exam: generalised Time Spent in preparation of Discharge (in minutes): 20 Diagnosis - Discharge Diagnosis (1) Back pain Status: Chronic (2) Chest pain Status: Chronic (3) Hypertension Status: Chronic Hospital Course - Lab Results Lab Results: Most Recent Lab Values WBC 9.4 K/uL (4.8-10.8) 04/03/19 01:11 RBC 4.54 Mil/uL (4.40-5.90) 04/03/19 01:11 Hgb 13.4 g/dL (12.0-18.0) 04/03/19 01:11 Hct 41.0 % (35.0-51.0) 04/03/19 01:11 MCV 90.4 fl (80.0-94.0) 04/03/19 01:11 MCH 29.6 pg (27.0-31.0) 04/03/19 01:11 MCHC 32.8 g/dL (33.0-37.0) L 04/03/19 01:11 RDW 15.5 % (11.5-14.5) H 04/03/19 01:11 Plt Count 154 K/uL (130-400) 04/03/19 01:11 MPV 11.0 fl (7.2-11.7) 04/03/19 01:11 Neut % (Auto) 65.1 % (50.0-75.0) 04/03/19 01:11 Lymph % (Auto) 21.2 % (20.0-40.0) 04/03/19 01:11 Mcdonald % (Auto) 8.3 % (0.0-10.0) 04/03/19 01:11 Eos % (Auto) 4.4 % (0.0-4.0) H 04/03/19 01:11 Baso % (Auto) 1.0 % (0.0-2.0) 04/03/19 01:11 Neut # (Auto) 6.1 K/uL (1.8-7.0) 04/03/19 01:11 Lymph # (Auto) 2.0 K/uL (1.0-4.3) 04/03/19 01:11 Mcdonald # (Auto) 0.8 K/uL (0.0-0.8) 04/03/19 01:11 Eos # (Auto) 0.4 K/uL (0.0-0.7) 04/03/19 01:11 Baso # (Auto) 0.1 K/uL (0.0-0.2) 04/03/19 01:11 Sodium 137 mmol/l (132-148) 04/03/19 01:11 Potassium 3.6 MMOL/L (3.6-5.0) 04/03/19 01:11 Chloride 106 mmol/L (98-107) 04/03/19 01:11 Carbon Dioxide 23 mmol/L (22-30) 04/03/19 01:11 Anion Gap 12 (10-20) 04/03/19 01:11 BUN 18 mg/dl (9-20) 04/03/19 01:11 Creatinine 0.9 mg/dl (0.8-1.5) 04/03/19 01:11 Est GFR ( Amer) > 60 04/03/19 01:11 Est GFR (Non-Af Amer) > 60 04/03/19 01:11 Random Glucose 126 mg/dL (75-110) H 04/03/19 01:11 Hemoglobin A1c 5.5 % (4.2-6.5) 04/03/19 07:25 Calcium 8.6 mg/dL (8.4-10.2) 04/03/19 01:11 Total Bilirubin 0.2 mg/dl (0.2-1.3) 04/03/19 01:11 AST 22 U/L (17-59) 04/03/19 01:11 ALT 28 U/L (21-72) 04/03/19 01:11 Alkaline Phosphatase 72 U/L (38-126) 04/03/19 01:11 Troponin I < 0.0120 ng/mL (0.00-0.120) 04/03/19 07:25 Total Protein 6.5 G/DL (6.3-8.2) 04/03/19 01:11 Albumin 3.8 g/dL (3.5-5.0) 04/03/19 01:11 Globulin 2.7 gm/dL (2.2-3.9) 04/03/19 01:11 Albumin/Globulin Ratio 1.4 (1.0-2.1) 04/03/19 01:11 Triglycerides 64 mg/DL (0-149) D 04/03/19 07:25 Cholesterol 134 mg/dL (0-199) 04/03/19 07:25 LDL Cholesterol Direct 86 mg/dL (0-129) 04/03/19 07:25 HDL Cholesterol 39 MG/DL (30-70) 04/03/19 07:25 TSH 3rd Generation 1.89 mIU/ML (0.46-4.68) 04/03/19 07:25 - Hospital Course Hospital Course: 64 yo male with PMHx of HTN, Renal stones, BPH, and Chronic low back pian and chest pain. Back pain [id number] YO Male with PMHx of HTN, renal stones, BPH and chronic low back pain presents to ER for low back pain and chest pain. Patient admitted for evaluation of ACS. Dr Maldonado was on case. Troponin x2 negative, EKG T wave changes in the lateral leads. Patient was started on Aspirin, EKG repeated no change. No evidence of acute coronary syndrome, but need to follow up as an outpatient to rule out evidence of coronary artery disease. Back pain, chronic, X-ray no active lesion/fracture, most likely msk. Will send home with Ibuprofen/lidoderm patch. Patient seen and examined. No acute event. discussed case with Dr Maldonado, patient is stable to be discharged home and follow up with PCP Medication D/C Amlodipine Start Lisinopril 5mg Atrovastatin 20mg Carvedilol 6.25 Aspirin 81mg Ibuprofen 400 mg Follow up with PCP in 1 week, need Cardiology follow up. Discharge Exam - Head Exam Head Exam: NORMAL INSPECTION - Eye Exam Eye Exam: EOMI, Normal appearance, PERRL Pupil Exam: NORMAL ACCOMODATION, PERRL - Neck Exam Neck exam: Full Rom - Respiratory Exam Respiratory Exam: Clear to PA & Lateral, NORMAL BREATHING PATTERN, UNREMARKABLE - Cardiovascular Exam Cardiovascular Exam: REGULAR RHYTHM, +S1, +S2 - GI/Abdominal Exam GI & Abdominal Exam: Normal Bowel Sounds, Unremarkable - Neurological Exam Neurological exam: Alert, CN II-XII Intact, Normal Gait, Oriented x3, Reflexes Normal - Psychiatric Exam Psychiatric exam: Normal Affect, Normal Mood - Skin Skin Exam: Dry, Intact, Normal Color, Warm Discharge Plan - Discharge Medications Prescriptions: Aspirin [Aspirin Chewable] 81 mg PO DAILY #30 chew Atorvastatin [Lipitor] 20 mg PO DAILY #30 tab Carvedilol [Coreg] 6.25 mg PO Q12 #30 tab Ibuprofen [Ibu] 400 mg PO Q6H PRN #30 tablet PRN Reason: back pain Lisinopril [Prinivil] 5 mg PO DAILY #30 tablet - Follow Up Plan Condition: STABLE Disposition: HOME/ ROUTINE Patient education suggested?: Yes Additional Instructions: FP Clinic appt next wk Cardio Clinic appt [facility] for further Cardiac work up Referrals: [facility] [place] [Outside] <Tyesha Mcneil - Last Filed: 04/03/19 13:27> Provider - Provider Date of Admission: 04/03/19 04:34 Attending physician: Koby Zamora Consults: 04/03/19 07:00 Cardiology Consult Routine Comment: Consulting Provider: Tate Maldonado V Consulting Physician: Tate Maldonado V Reason for Consult: chest pain with EKG change 04/03/19 10:48 Social Work Referral Routine Comment: lives along Physician Instructions: Reason For Exam: generalised Hospital Course - Lab Results Lab Results: Most Recent Lab Values WBC 9.4 K/uL (4.8-10.8) 04/03/19 01:11 RBC 4.54 Mil/uL (4.40-5.90) 04/03/19 01:11 Hgb 13.4 g/dL (12.0-18.0) 04/03/19 01:11 Hct 41.0 % (35.0-51.0) 04/03/19 01:11 MCV 90.4 fl (80.0-94.0) 04/03/19 01:11 MCH 29.6 pg (27.0-31.0) 04/03/19 01:11 MCHC 32.8 g/dL (33.0-37.0) L 04/03/19 01:11 RDW 15.5 % (11.5-14.5) H 04/03/19 01:11 Plt Count 154 K/uL (130-400) 04/03/19 01:11 MPV 11.0 fl (7.2-11.7) 04/03/19 01:11 Neut % (Auto) 65.1 % (50.0-75.0) 04/03/19 01:11 Lymph % (Auto) 21.2 % (20.0-40.0) 04/03/19 01:11 Mcdonald % (Auto) 8.3 % (0.0-10.0) 04/03/19 01:11 Eos % (Auto) 4.4 % (0.0-4.0) H 04/03/19 01:11 Baso % (Auto) 1.0 % (0.0-2.0) 04/03/19 01:11 Neut # (Auto) 6.1 K/uL (1.8-7.0) 04/03/19 01:11 Lymph # (Auto) 2.0 K/uL (1.0-4.3) 04/03/19 01:11 Mcdonald # (Auto) 0.8 K/uL (0.0-0.8) 04/03/19 01:11 Eos # (Auto) 0.4 K/uL (0.0-0.7) 04/03/19 01:11 Baso # (Auto) 0.1 K/uL (0.0-0.2) 04/03/19 01:11 Sodium 137 mmol/l (132-148) 04/03/19 01:11 Potassium 3.6 MMOL/L (3.6-5.0) 04/03/19 01:11 Chloride 106 mmol/L (98-107) 04/03/19 01:11 Carbon Dioxide 23 mmol/L (22-30) 04/03/19 01:11 Anion Gap 12 (10-20) 04/03/19 01:11 BUN 18 mg/dl (9-20) 04/03/19 01:11 Creatinine 0.9 mg/dl (0.8-1.5) 04/03/19 01:11 Est GFR ( Amer) > 60 04/03/19 01:11 Est GFR (Non-Af Amer) > 60 04/03/19 01:11 Random Glucose 126 mg/dL (75-110) H 04/03/19 01:11 Hemoglobin A1c 5.5 % (4.2-6.5) 04/03/19 07:25 Calcium 8.6 mg/dL (8.4-10.2) 04/03/19 01:11 Total Bilirubin 0.2 mg/dl (0.2-1.3) 04/03/19 01:11 AST 22 U/L (17-59) 04/03/19 01:11 ALT 28 U/L (21-72) 04/03/19 01:11 Alkaline Phosphatase 72 U/L (38-126) 04/03/19 01:11 Troponin I < 0.0120 ng/mL (0.00-0.120) 04/03/19 07:25 Total Protein 6.5 G/DL (6.3-8.2) 04/03/19 01:11 Albumin 3.8 g/dL (3.5-5.0) 04/03/19 01:11 Globulin 2.7 gm/dL (2.2-3.9) 04/03/19 01:11 Albumin/Globulin Ratio 1.4 (1.0-2.1) 04/03/19 01:11 Triglycerides 64 mg/DL (0-149) D 04/03/19 07:25 Cholesterol 134 mg/dL (0-199) 04/03/19 07:25 LDL Cholesterol Direct 86 mg/dL (0-129) 04/03/19 07:25 HDL Cholesterol 39 MG/DL (30-70) 04/03/19 07:25 TSH 3rd Generation 1.89 mIU/ML (0.46-4.68) 04/03/19 07:25 Attending/Attestation - Attestation I have personally seen and examined this patient.: Yes I have fully participated in the care of the patient.: Yes I have reviewed all pertinent clinical information, including history, physical exam and plan: Yes Notes (Text): Diagnoses: Atypical Chest Pain, pain prob musculoskeletal HTN Chronic Low Back Pain - cont ASA, Coreg, Lisinopril and Lipitor - d/c Norvasc - Ibuprofen for pain - further cardiac work up as outpt - ff up FP clinic in 1 wk
[2019-04-03 14:25] VITALS: BP 127/72; PULSE 58; RESP 16; TEMP 98.8
== END 2019-04-03 15:10 | disposition home or self-care (01) ==
LOC: H.ER 22:26 → H.ERHOLD 04-03 04:34 → H.ICU/CCU 04-03 06:24
PROVIDERS: ADMIT Internal Medicine; ATTEND Internal Medicine
DX: R07.89 Other chest pain (principal); G89.29 Other chronic pain; C61 Malignant neoplasm of prostate; N40.0 Benign prostatic hyperplasia without lower urinary tract symptoms; K21.9 Gastro-esophageal reflux disease without esophagitis; J43.9 Emphysema, unspecified; I12.9 Hypertensive chronic kidney disease with stage 1 through stage 4 chronic kidney disease, or unspecified chronic kidney disease; N18.9 Chronic kidney disease, unspecified; F17.210 Nicotine dependence, cigarettes, uncomplicated; Z87.442 Personal history of urinary calculi
CPT/HCPCS: 71046; 72100; 80053; 80061; 83036; 84443; 84484; 85025; 87081; 93005; 99285; G0378; J1650